=== PATIENT | male | born 1945 | race American Indian/Alaskan Native ===

== ENCOUNTER 2016-08-20 23:26 | Emergency (ER) | payer MEDICARE, MEDICAID ==
[2016-08-20 23:39] VITALS: BMI 33.8
[2016-08-20 23:42] VITALS: TEMP 98.5
--- NOTE | 2016-08-20 23:57 | ED PDOC ---
Arrival/HPI - General Chief Complaint: Vascular Access Device Problem Time Seen by Provider: 08/20/16 23:46 Historian: Patient - History of Present Illness Narrative History of Present Illness (Text): 08/20/16 23:54 Junior Hedrick is a 71 year old male, whose past medical history includes right chest [id number], CHF, cardiomyopathy, hypertension, CAD, diabetes, hypothyroidism, and anemia, who presents to the Emergency department complaining of obstructed chest port-a-cath. Patient states he has right port-a- cath Dobutaime drip which he believes may be clogged. Patient states his drip has been turning on and off since 14:30 and was advised by his nurse to come to the Emergency department. Patient denies any fever, chills, chest pain, shortness of breath, nausea, vomiting, diarrhea, urinary symptoms, back pain, neck pain, headache, dizziness, or any other complaints. PMD: Dr. Olayinka Nicole Shop Mechanic Helper: Dr. Nam Surgeon: Dr. Morris Time/Duration: Other (14:30) Symptom Onset: Gradual Symptom Course: Unchanged Activities at Onset: Rest, Light Context: Home Past Medical History - Provider Review Nursing Documentation Reviewed: Yes - Infectious Disease Hx of Infectious Diseases: None - Tetanus Immunization Tetanus Immunization: Unknown - Cardiac Hx Congestive Heart Failure: Yes Hx VT: Yes - Pulmonary Hx Respiratory Disorders: Yes Hx Pneumonia: Yes - Neurological Hx Neurological Disorder: No - HEENT Hx HEENT Disorder: Yes (WEARS RX GLASSES) - Renal Hx Renal Disorder: No - Endocrine/Metabolic Hx Endocrine Disorders: Yes Hx Diabetes Mellitus Type 2: Yes Hx Hypothyroidism: Yes - Hematological/Oncological Hx Blood Disorders: Yes Hx Anemia: Yes - Integumentary Hx Dermatological Disorder: No Other/Comment: ble dry skin - Musculoskeletal/Rheumatological Hx Falls: No - Gastrointestinal Hx Gastrointestinal Disorders: Yes Hx Gall Bladder Disease: Yes (CHOLECYSTECTOMY) - Genitourinary/Gynecological Hx Genitourinary Disorders: No - Psychiatric Hx Emotional Abuse: No Hx Physical Abuse: No Hx Substance Use: No - Surgical History Hx Cardiac Catheterization: Yes - Anesthesia Hx Anesthesia Reactions: No Hx Malignant Hyperthermia: No - Suicidal Assessment Feels Threatened In Home Enviroment: No Family/Social History - Physician Review Nursing Documentation Reviewed: Yes Family/Social History: No Known Family HX Smoking Status: Former Smoker Hx Alcohol Use: No Hx Substance Use: No Hx Substance Use Treatment: No Allergies/Home Meds Allergies/Adverse Reactions: Allergies NENITA Inhibitors Allergy (Severe, Verified 06/23/15 11:24) ANGIOEDEMA levothyroxine sodium Allergy (Severe, Verified 06/23/15 11:24) NAUSEA/ SWEATS lisinopril Allergy (Severe, Verified 06/23/15 11:24) ANGIOEDEMA all pril Allergy (Severe, Uncoded 06/23/15 11:24) ANGIOEDEMA eggs Allergy (Intermediate, Uncoded 06/23/15 11:24) RASH Home Medications: Home Meds Medication Instructions Recorded Confirmed Aspirin [Aspirin EC] 81 mg PO DAILY 07/03/14 08/06/16 Ferrous Sulfate [Feosol] 325 mg PO DAILY 05/29/15 08/06/16 Metoprolol Tartrate [Lopressor] 50 mg PO BID 05/29/15 08/06/16 Multivitamin [Multivitamins] 1 each PO DAILY 05/29/15 08/06/16 DOBUTamine 500mg/250ml D5W 500 mg IV DAILY 06/22/15 08/06/16 [DOBUTamine/Dextrose 5% 500mg/250ml] Review of Systems - Physician Review All systems were reviewed & negative as marked: Yes - Review of Systems Constitutional: Normal. absent: Fevers Eyes: Normal ENT: Normal Respiratory: Normal. absent: SOB, Cough Cardiovascular: Normal. absent: Chest Pain Gastrointestinal: Normal. absent: Abdominal Pain, Diarrhea, Nausea, Vomiting Genitourinary Male: Normal. absent: Dysuria, Frequency, Hematuria, Urinary Output Changes Musculoskeletal: Normal. absent: Back Pain, Neck Pain Skin: Normal. absent: Rash Neurological: Normal. absent: Headache, Dizziness Endocrine: Normal Hemo/Lymphatic: Other (+clogged port) Psychiatric: Normal Physical Exam - Physical Exam Narrative Physical Exam (Text): 08/20/16 23:56 Vital Signs Reviewed: Yes Vital Signs Temp Pulse Resp BP Pulse Ox 08/21/16 02:37 85 16 152/79 H 98 08/20/16 23:42 98.5 F 81 18 153/76 H 99 Temperature: Afebrile Blood Pressure: Normal Pulse: Regular Respiratory Rate: Normal Appearance: Positive for: Well-Appearing, Non-Toxic, Comfortable Pain Distress: None Mental Status: Positive for: Alert and Oriented X 3 - Systems Exam Head: Present: Atraumatic, Normocephalic Pupils: Present: PERRL Extroacular Muscles: Present: EOMI Conjunctiva: Present: Normal Mouth: Present: Moist Mucous Membranes Neck: Present: Normal Range of Motion Respiratory/Chest: Present: Clear to Auscultation, Good Air Exchange, Other ( Right chest port). No: Respiratory Distress, Accessory Muscle Use Cardiovascular: Present: Regular Rate and Rhythm, Normal S1, S2. No: Murmurs Abdomen: Present: Normal Bowel Sounds. No: Tenderness, Distention, Peritoneal Signs Back: Present: Normal Inspection Upper Extremity: Present: Normal Inspection. No: Cyanosis, Edema Lower Extremity: Present: Normal Inspection. No: Edema Neurological: Present: GCS=15, CN II-XII Intact, Speech Normal Skin: Present: Warm, Dry, Normal Color. No: Rashes Psychiatric: Present: Alert, Oriented x 3, Normal Insight, Normal Concentration Medical Decision Making ED Course and Treatment: 08/20/16 23:55 Impression: 71 year old male complaining of a clogged [id number]. Plan: -- Cathflo -- Reassess and disposition Prior Visits: Notes and results from previous visits were reviewed. Progress Notes: 08/21/16 02:27 [id number] flushed with good blood return as per RN. On re-evaluation, the patient feels better and is in no acute distress. I have discussed the results and plan with the patient, who expresses understanding. Patient in agreement with plan to discharged home. Patient is stable for discharge. Patient was instructed to follow up with physician/clinic in 1-2 days or return if symptoms worsen or new concerning symptoms arise. Re-evaluation Time: 02:27 Reassessment Condition: Re-examined, Improved - Medication Orders Current Medication Orders: Discontinued Medications Alteplase, Recombinant (Cathflo 2 Mg Inj) 2 mg IV ONCE ONE Stop: 08/21/16 00:13 Last Admin: 08/21/16 00:37 Dose: 2 mg Comments: med administered into port-a-cath. blood return reassessment due after 1 hour - Scribe Statement The provider has reviewed the documentation as recorded by the Scribe Daniella Carvajal All medical record entries made by the Scribe were at my direction and personally dictated by me. I have reviewed the chart and agree that the record accurately reflects my personal performance of the history, physical exam, medical decision making, and the department course for this patient. I have also personally directed, reviewed, and agree with the discharge instructions and disposition. Disposition/Present on Arrival - Present on Arrival Any Indicators Present on Arrival: No History of DVT/PE: No History of Uncontrolled Diabetes: No Urinary Catheter: No History of Decub. Ulcer: No History Surgical Site Infection Following: None - Disposition Have Diagnosis and Disposition been Completed?: Yes Diagnosis: Portacath in place Disposition: HOME/ ROUTINE Disposition Time: 02:27 Condition: GOOD Referrals: Jai Nicole DO [Primary Care Provider] - Follow up with primary
[2016-08-21 02:37] VITALS: BP 152/79; PULSE 85; RESP 16; O2SAT 98
== END 2016-08-21 02:36 | disposition home or self-care (01) ==
LOC: ED 23:26
DX: Z45.2 Encounter for adjustment and management of vascular access device (principal)
CPT/HCPCS: 99283; J2997

== ENCOUNTER 2018-04-16 12:11 | Emergency (ER) | payer MEDICARE, MEDICAID ==
[2018-04-16 12:15] VITALS: BMI 33.8
[2018-04-16 12:17] VITALS: BP 156/84; PULSE 74; RESP 18; TEMP 97.5; O2SAT 99
--- NOTE | 2018-04-16 12:36 | ED PDOC ---
Arrival/HPI - General Chief Complaint: Back Pain Time Seen by Provider: 04/16/18 12:13 Historian: Patient - History of Present Illness Narrative History of Present Illness (Text): 04/16/18 12:33 A 72 year old male, whose past medical history includes right chest bjgg-[id number], CHF, cardiomyopathy, hypertension, CAD, diabetes, hypothyroidism, and anemia, presents to the emergency department with a complaint of 4 day duration neck pain. The patient reports that the neck pain started "randomly and 2 days ago it worsened and began radiating up his neck to the back of his head. He states that he "believes he slept wrong and only needs a muscle relaxant". The patient denies fevers, chills, headache, dizziness, chest pain, shortness of breath, dyspnea on exertion, cough, abdominal pain, nausea, vomiting, diarrhea, back pain, urinary/bowel changes, or any other complaint. no trauma no larkin. [facility]. PMD: Dr. Nicole Flume Ride Operator: Dr. Nam Surgeon: Dr. Morris 04/16/18 22:14 Time/Duration: Other (4 Days) Symptom Onset: Sudden Symptom Course: Unchanged Activities at Onset: Rest, Light Context: Home Past Medical History - Provider Review Nursing Documentation Reviewed: Yes - Infectious Disease Hx of Infectious Diseases: None - Tetanus Immunization Tetanus Immunization: Unknown - Cardiac Hx Congestive Heart Failure: Yes Hx [place]: Yes - Pulmonary Hx Respiratory Disorders: Yes Hx Pneumonia: Yes - Neurological Hx Neurological Disorder: No - HEENT Hx HEENT Disorder: Yes (WEARS RX GLASSES) - Renal Hx Renal Disorder: No - Endocrine/Metabolic Hx Endocrine Disorders: Yes Hx Diabetes Mellitus Type 2: Yes Hx Hypothyroidism: Yes - Hematological/Oncological Hx Blood Disorders: Yes Hx Anemia: Yes - Integumentary Hx Dermatological Disorder: No Other/Comment: ble dry skin - Musculoskeletal/Rheumatological Hx Falls: No - Gastrointestinal Hx Gastrointestinal Disorders: Yes Hx Gall Bladder Disease: Yes (CHOLECYSTECTOMY) - Genitourinary/Gynecological Hx Genitourinary Disorders: No - Psychiatric Hx Emotional Abuse: No Hx Physical Abuse: No Hx Substance Use: No - Surgical History Hx Cardiac Catheterization: Yes - Anesthesia Hx Anesthesia Reactions: No Hx Malignant Hyperthermia: No - Suicidal Assessment Feels Threatened In Home Enviroment: No Family/Social History - Physician Review Nursing Documentation Reviewed: Yes Family/Social History: No Known Family HX Smoking Status: Light Smoker < 10 Cigarettes Daily Hx Alcohol Use: No Hx Substance Use: No Hx Substance Use Treatment: No Allergies/Home Meds Allergies/Adverse Reactions: Allergies NENITA Inhibitors Allergy (Severe, Verified 06/23/15 11:24) ANGIOEDEMA levothyroxine sodium Allergy (Severe, Verified 06/23/15 11:24) NAUSEA/ SWEATS lisinopril Allergy (Severe, Verified 06/23/15 11:24) ANGIOEDEMA all pril Allergy (Severe, Uncoded 06/23/15 11:24) ANGIOEDEMA eggs Allergy (Intermediate, Uncoded 06/23/15 11:24) RASH Home Medications: Home Meds Medication Instructions Recorded Confirmed RX: Aspirin [Aspirin EC] 81 mg PO DAILY 07/03/14 04/16/18 Ferrous Sulfate [Feosol] 325 mg PO DAILY 05/29/15 04/16/18 Metoprolol Tartrate [Lopressor] 50 mg PO BID 05/29/15 04/16/18 RX: metFORMIN [glucOPHAGE] 500 mg PO BID 12/26/16 04/16/18 Review of Systems - Physician Review All systems were reviewed & negative as marked: Yes - Review of Systems Constitutional: absent: Fevers Respiratory: absent: SOB, Cough Cardiovascular: absent: Chest Pain, RUIZ Gastrointestinal: absent: Abdominal Pain, Stool Changes, Diarrhea, Nausea, Vomiting Genitourinary Male: absent: Urinary Output Changes Musculoskeletal: Neck Pain. absent: Back Pain Neurological: absent: Headache, Dizziness Physical Exam Vital Signs Reviewed: Yes Vital Signs Temp Pulse Resp BP Pulse Ox 04/16/18 12:17 97.5 F L 74 18 156/84 H 99 Temperature: Hypothermic Blood Pressure: Hypertensive Pulse: Regular Respiratory Rate: Normal Appearance: Positive for: Well-Appearing, Non-Toxic, Comfortable Pain Distress: None Mental Status: Positive for: Alert and Oriented X 3 - Systems Exam Head: Present: Atraumatic, Normocephalic Pupils: Present: PERRL Extroacular Muscles: Present: EOMI Conjunctiva: Present: Normal Mouth: Present: Moist Mucous Membranes Neck: Present: Other (Left sided paracervical tenderness) Respiratory/Chest: Present: Clear to Auscultation, Good Air Exchange. No: Respiratory Distress, Accessory Muscle Use Cardiovascular: Present: Regular Rate and Rhythm, Normal S1, S2. No: Murmurs Abdomen: No: Tenderness, Distention, Peritoneal Signs Back: Present: Normal Inspection Upper Extremity: Present: Normal Inspection. No: Cyanosis, Edema Lower Extremity: Present: Normal Inspection. No: Edema Neurological: Present: GCS=15, CN II-XII Intact, Speech Normal Skin: Present: Warm, Dry, Normal Color. No: Rashes Psychiatric: Present: Alert, Oriented x 3, Normal Insight, Normal Concentration Medical Decision Making ED Course and Treatment: 04/16/18 12:37 Impression: A 72 year old male presents to the emergency department with 4 day duration neck pain radiating to his head. no lesions/masses palpated on exam. pt well appearing neuro intact no fever no meningmus. exam consistent with toritcollis. no indication for emergent imaging no trauma. adivs eoutpt fu. no cervial manipulation. Plan: -- Flexeril and Toradol -- Reassess and disposition Progress Notes: 04/16/18 12:38 Patient is in no acute distress. I have discussed the results and plan with the patient, who expresses understanding. Patient in agreement with plan to be discharged home. Patient is stable for discharge. Patient was instructed to follow up with physician or return if symptoms worsen or new concerning symptoms arise. 04/16/18 22:13 04/16/18 22:15 - Medication Orders Current Medication Orders: Cyclobenzaprine HCl (Flexeril) 10 mg PO STAT STA Stop: 04/16/18 12:32 Ketorolac Tromethamine (Toradol) 30 mg IM STAT STA Stop: 04/16/18 12:32 - Scribe Statement The provider has reviewed the documentation as recorded by the Iván Raymundo Provider Scribe Attestation: All medical record entries made by the Scribe were at my direction and personally dictated by me. I have reviewed the chart and agree that the record accurately reflects my personal performance of the history, physical exam, [facility] decision making, and the department course for this patient. I have also personally directed, reviewed, and agree with the discharge instructions and disposition. Disposition/Present on Arrival - Present on Arrival Any Indicators Present on Arrival: No History of DVT/PE: No History of Uncontrolled Diabetes: No Urinary Catheter: No History of Decub. Ulcer: No History Surgical Site Infection Following: None - Disposition Have Diagnosis and Disposition been Completed?: Yes Diagnosis: Neck pain, Torticollis Disposition: HOME/ ROUTINE Disposition Time: 12:00 Condition: STABLE Discharge Instructions (ExitCare): Neck Pain Additional Instructions: follow up with your doctor/clinic. return to er with worsening symptoms or concerns. Prescriptions: Cyclobenzaprine [Cyclobenzaprine HCl] 10 mg PO DAILY PRN #10 tab PRN Reason: Muscle Spasm RX: Naproxen 500 mg PO BID PRN #14 tablet PRN Reason: Pain, Mild (1-3) Referrals: Sergo Galo MD [Staff Provider] - Follow up with primary Forms: [employer] (Ukrainian)
== END 2018-04-16 13:09 | disposition home or self-care (01) ==
LOC: ED 12:11
DX: M43.6 Torticollis (principal); M54.2 Cervicalgia; E03.9 Hypothyroidism, unspecified; I25.10 Atherosclerotic heart disease of native coronary artery without angina pectoris; E11.9 Type 2 diabetes mellitus without complications; I42.9 Cardiomyopathy, unspecified; I10 Essential (primary) hypertension; I50.9 Heart failure, unspecified; F17.210 Nicotine dependence, cigarettes, uncomplicated
CPT/HCPCS: 96372; 99282; J1885

== ENCOUNTER 2018-05-27 10:39 | Outpatient (CLI) | payer MEDICARE, MEDICAID | END 2018-05-27 10:40 | disposition home or self-care (01) | LOC: LAB 10:39 ==

== ENCOUNTER 2018-06-21 10:52 | Outpatient (CLI) | payer MEDICARE, MEDICAID | END 2018-06-21 10:53 | disposition home or self-care (01) | LOC: LAB 10:52 ==

== ENCOUNTER 2018-07-26 07:31 | Outpatient (CLI) | payer MEDICARE, MEDICAID | END 2018-07-26 07:32 | disposition home or self-care (01) | LOC: LAB 07:31 ==

== ENCOUNTER 2018-07-28 10:36 | Observation (INO) | payer MEDICARE, MEDICAID ==
[2018-07-28 10:40] VITALS: BMI 31.9
[2018-07-28 11:22] LABS: BASO # 0.05 K/mm3 (0.0-2.0); BASO % 0.7 % (0.0-3.0); EOS # 0.1 (0.0-0.7); EOS % 0.9 % (1.5-5.0); HEMOGLOBIN 9.8 g/dL (14.0-18.0); LYMPH # 0.8 (1.2-3.4); LYMPH % 11.4 % (22.0-35.0); MEAN CELL VOLUME 78.3 fl (80.0-105.0); MEAN CORPUSCULAR HEMOGLOBIN 24.7 pg (25.0-35.0); MEAN CORPUSCULAR HGB CONC 31.6 g/dl (31.0-37.0); MEAN PLATELET VOLUME 10.4 fl (7.0-11.0); MONO # 1.1 (0.1-0.6); MONO % 16.4 % (1.0-6.0); RBC 3.96 10^6/uL (3.5-6.1); RED CELL DISTRIBUTION WIDTH 17.1 % (11.5-14.5); WHITE BLOOD COUNT 6.8 10^3/uL (4.5-11.0)
[2018-07-28 11:27] LABS: ALB/GLOB RATIO 1.1 (1.1-1.8); ALBUMIN 4.1 g/dL (3.0-4.8); CALCIUM 9.4 mg/dL (8.4-10.5)
--- NOTE | 2018-07-28 11:28 | ED PDOC ---
Arrival/HPI - General Historian: Patient - History of Present Illness Narrative History of Present Illness (Text): 07/28/18 11:24 CC: SOB HPI: Patient is a 73 yo male w/ PMH of Cardiomyopathy, CHF, HTN, CAD, athritis, DM2, Hypothyroidism, herniated disks, and a port-a-cath placed. Patient states he has been having sob ongoing for past 2-3 weeks. Patient states the sob occurs during minimal exertion including walking a short distance. Admits to dry cough. Patient states he followed up with his PMD, Dr. Nicole, who has setup an outpatient stress test for this upcoming thursday. Patient denies angina. Patient admits to a smoking history of greater than 30 years. Was recently taken off dobutamine drip and was placed on entresto. Time/Duration: > week Symptom Course: Unchanged Activities at Onset: Light Context: Walking, Exertion <Kiet Armenta - Last Filed: 07/28/18 12:49> <Kosta Jeff DO - Last Filed: 07/28/18 18:22> - General Chief Complaint: Shortness Of Breath Time Seen by Provider: 07/28/18 10:42 Past Medical History - Provider Review Nursing Documentation Reviewed: Yes - Infectious Disease Hx of Infectious Diseases: None - Tetanus Immunization Tetanus Immunization: Unknown - Cardiac Hx Congestive Heart Failure: Yes Hx OR: Yes - Pulmonary Hx Respiratory Disorders: Yes Hx Pneumonia: Yes - Neurological Hx Neurological Disorder: No - HEENT Hx HEENT Disorder: Yes (WEARS RX GLASSES) - Renal Hx Renal Disorder: No - Endocrine/Metabolic Hx Endocrine Disorders: Yes Hx Diabetes Mellitus Type 2: Yes Hx Hypothyroidism: Yes - Hematological/Oncological Hx Blood Disorders: Yes Hx Anemia: Yes - Integumentary Hx Dermatological Disorder: No Other/Comment: ble dry skin - Musculoskeletal/Rheumatological Hx Falls: No - Gastrointestinal Hx Gastrointestinal Disorders: Yes Hx Gall Bladder Disease: Yes (CHOLECYSTECTOMY) - Genitourinary/Gynecological Hx Genitourinary Disorders: No - Psychiatric Hx Emotional Abuse: No Hx Physical Abuse: No Hx Substance Use: No - Surgical History Hx Cardiac Catheterization: Yes - Anesthesia Hx Anesthesia Reactions: No Hx Malignant Hyperthermia: No - Suicidal Assessment Feels Threatened In Home Enviroment: No <Kiet Armenta - Last Filed: 07/28/18 12:49> Family/Social History Family/Social History: No Known Family HX Smoking Status: Light Smoker < 10 Cigarettes Daily Hx Alcohol Use: No Hx Substance Use: No Hx Substance Use Treatment: No <Kiet Armenta - Last Filed: 07/28/18 12:49> Allergies/Home Meds <Kiet Armenta - Last Filed: 07/28/18 12:49> <Kosta Jeff DO - Last Filed: 07/28/18 18:22> Allergies/Adverse Reactions: Allergies eggs Allergy (Intermediate, Uncoded 07/28/18 12:47) RASH Home Medications: Home Meds Medication Instructions Recorded Confirmed Aspirin [Aspirin EC] 81 mg PO DAILY 07/03/14 07/28/18 Metoprolol Tartrate [Lopressor] 50 mg PO BID 05/29/15 07/28/18 metFORMIN [glucOPHAGE] 500 mg PO BID 12/26/16 07/28/18 Atorvastatin [Lipitor] 10 mg PO DIN 07/28/18 07/28/18 Famotidine [Pepcid] 20 mg PO DAILY 07/28/18 07/28/18 Ferrous Sulfate [Ferosul] 325 mg PO DAILY 07/28/18 07/28/18 Furosemide [Lasix] 40 mg PO DAILY 07/28/18 07/28/18 Ibuprofen [Advil] 200 mg PO BID 07/28/18 07/28/18 Levothyroxine [Levoxyl] 0.025 mg PO DAILY 07/28/18 07/28/18 Sacubitril/Valsartan [Entresto 49 1 tab PO DAILY 07/28/18 07/28/18 mg-51 mg] Review of Systems - Review of Systems Constitutional: Normal. absent: Fatigue, Weight Change, Fevers, Night Sweats Eyes: Normal. absent: Vision Changes, Photophobia ENT: Normal. absent: Hearing Changes, Tinnitus Respiratory: SOB, Cough. absent: Sputum, Wheezing Cardiovascular: RUIZ. absent: Chest Pain, Palpitations, Edema, Calf Pain, Orthopnea Gastrointestinal: Normal. absent: Abdominal Pain, Stool Changes, Constipation, Diarrhea, Nausea, Vomiting Genitourinary Male: Normal. absent: Dysuria, Frequency Musculoskeletal: Normal. absent: Arthralgias, Back Pain, Neck Pain Skin: Normal. absent: Rash Neurological: Normal. absent: Headache, Dizziness Endocrine: Normal. absent: Diaphoresis, Polyuria Psychiatric: Normal. absent: Anxiety, Depression <Kiet Armenta - Last Filed: 07/28/18 12:49> Physical Exam Vital Signs Reviewed: Yes Vital Signs Resp Pulse Ox 07/28/18 11:05 18 100 Temperature: Afebrile Blood Pressure: Normal Pulse: Regular Respiratory Rate: Normal Appearance: Positive for: Well-Appearing, Non-Toxic, Comfortable Pain Distress: None Mental Status: Positive for: Alert and Oriented X 3 - Systems Exam Head: Present: Atraumatic, Normocephalic. No: Tenderness, Contusion Pupils: Present: PERRL. No: Sluggish, Non-Reactive Extroacular Muscles: Present: EOMI. No: Gaze Palsy Conjunctiva: Present: Normal. No: Injected Ears: Present: Normal. No: NORMAL TM, Erythema Mouth: Present: Moist Mucous Membranes. No: Dry, Drooling, Trismus Pharnyx: Present: Normal. No: ERYTHEMA, EXUDATE, TONSILS ENLARGED Respiratory/Chest: Present: Clear to Auscultation, Good Air Exchange. No: Respiratory Distress, Accessory Muscle Use, Wheezes Cardiovascular: Present: Regular Rate and Rhythm, Normal S1, S2. No: Murmurs Abdomen: Present: Normal Bowel Sounds. No: Tenderness, Distention, Peritoneal Signs Upper Extremity: Present: Normal Inspection. No: Cyanosis, Edema Lower Extremity: Present: Normal Inspection. No: Edema, CALF TENDERNESS Neurological: Present: GCS=15, CN II-XII Intact, Speech Normal Skin: Present: Warm, Dry, Normal Color. No: Rashes Psychiatric: Present: Alert, Oriented x 3, Normal Insight, Normal Concentration <Kiet Armenta - Last Filed: 07/28/18 12:49> Vital Signs Pulse Resp BP Pulse Ox 07/28/18 12:31 146/92 H 07/28/18 12:28 84 22 146/92 H 97 07/28/18 11:05 18 100 <Kosta Jeff DO - Last Filed: 07/28/18 18:22> Medical Decision Making ED Course and Treatment: 07/28/18 11:31 Impression 73 yo male w/ PMHx CAD (stent placement in 09/30), HTN, DM II, HLD, TIA, COPD, Depression, Generalized Anxiety Disorder who presented to the emergency department for 2-3 weeks of ongoing sob. Plan -BNP -Cardiac Enzymes -Magnesium -CMP -CXray -EKG -Lasix Prior Visits All prior visits and lab work reviewed for this evaluation Progress Notes Pending results of studies to consider differential for RUIZ, (CHF vs Interstitial Lung Disease vs CAD) 07/28/18 12:24 Had discussion with PMD, Dr. Nicole, for possible admission for inpatient stress test done with Dr. Lis Nicole accepted patient to the his service Paged Dr. Hays awaiting call back. Patient amenable to staying after discussion with who was at bedside 07/28/18 12:27 Dr. Hays called back stating that he will likely do stress test in the morning 07/28/18 12:28 1x dose of Lasix was given to due to radiology studies suggestive of pulmonary venous congestion Re-evaluation Time: 12:25 Reassessment Condition: Re-examined, Unchanged - Lab Interpretations Lab Results: 07/28/18 11:00 07/28/18 11:00 Lab Results 07/28/18 11:00: Sodium 140, Potassium 3.7, Chloride 102, Carbon Dioxide 28, Anion Gap 14, BUN 18, Creatinine 1.6 H, Est GFR ( Amer) 52, Est GFR (Non- Af Amer) 43, Random Glucose 172 H, Calcium 9.4, Magnesium 1.5 L, Total Bilirubin 2.7 H, AST 198 H D, ALT 201 H, Alkaline Phosphatase 229 H D, Lactate Dehydrogenase 1428 H, Total Creatine Kinase 90, Troponin I 0.07 D, NT-Pro-B Natriuret Pep 20712 H, Total Protein 7.8, Albumin 4.1, Globulin 3.7, Albumin/Globulin Ratio 1.1 07/28/18 11:00: WBC 6.8, RBC 3.96, Hgb 9.8 L, Hct 31.0 L, MCV 78.3 L, MCH 24.7 L , MCHC 31.6, RDW 17.1 H, Plt Count 285, MPV 10.4, Neut % (Auto) 70.6 H, Lymph % (Auto) 11.4 L, Sullivan % (Auto) 16.4 H, Eos % (Auto) 0.9 L, Baso % (Auto) 0.7, Lymph # (Auto) 0.8 L, Sullivan # (Auto) 1.1 H, Eos # (Auto) 0.1, Baso # (Auto) 0.05, Absolute Neuts (auto) 4.77 I have reviewed the lab results: Yes Interpretation: Abnormal lab values - RAD Interpretation Narrative RAD Interpretations (Text): 07/28/18 12:27 Radiology Results Chest X-Ray 07/28/18 11:01 IMPRESSION: Mild cardiomegaly and mild vascular congestion Radiology Orders: 07/28/18 11:01 CHEST PORTABLE [RAD] Stat - EKG Interpretation Interpreted by ED Physician: Yes Type: 12 lead EKG Comparison: Similar to previous EKG <Italo Armentachristo - Last Filed: 07/28/18 12:49> ED Course and Treatment: 07/28/18 13:38 Patient Seen with Resident: In agreement with resident note which contains more details about the patient. Patient seen and evaluated with resident. Came up with plan and treatment together. 07/28/18 17:32 - Lab Interpretations Lab Results: Troponin I 0.07 ng/mL D 07/28/18 11:00 NT-Pro-B Natriuret Pep 92901 pg/mL (0-450) H 07/28/18 11:00 Total Bilirubin 2.7 mg/dL (0.2-1.3) H 07/28/18 11:00 AST 198 U/L (17-59) H D 07/28/18 11:00 ALT 201 U/L (7-56) H 07/28/18 11:00 Alkaline Phosphatase 229 U/L (38-126) H D 07/28/18 11:00 Total Protein 7.8 g/dL (5.8-8.3) 07/28/18 11:00 Albumin 4.1 g/dL (3.0-4.8) 07/28/18 11:00 Globulin 3.7 gm/dL 07/28/18 11:00 Albumin/Globulin Ratio 1.1 (1.1-1.8) 07/28/18 11:00 - RAD Interpretation Radiology Orders: 07/28/18 11:01 CHEST PORTABLE [RAD] Stat - Medication Orders Current Medication Orders: Discontinued Medications Furosemide (Lasix) 40 mg IVP STAT STA Stop: 07/28/18 12:18 Last Admin: 07/28/18 12:31 Dose: 40 mg MAR Blood Pressure Document 07/28/18 12:31 EAR (Rec: 07/28/18 12:31 EAR [facility] [id number]) Blood Pressure Blood Pressure (100/60-150/90) 146/92 IVP Administration Document 07/28/18 12:31 EAR (Rec: 07/28/18 12:31 EAR [facility] [place]-ER-[id number]) Charges for Administration # of IVP Administrations 1 <Kosta Jeff DO - Last Filed: 07/28/18 18:22> - PA / MOVE COORDINATOR / Resident Statement MICHOACANO has reviewed & agrees with the documentation as recorded. MICHOACANO has examined the patient and agrees with the treatment plan. <Kosta Jeff DO - Last Filed: 07/28/18 18:22> Disposition/Present on Arrival - Present on Arrival Any Indicators Present on Arrival: No History of DVT/PE: No History of Uncontrolled Diabetes: No Urinary Catheter: No History of Decub. Ulcer: No History Surgical Site Infection Following: None - Disposition Have Diagnosis and Disposition been Completed?: Yes Disposition Time: 12:50 Patient Plan: Telemetry <Kiet Armenta - Last Filed: 07/28/18 12:49> - Disposition Disposition Time: 11:45 <Kosta Jeff DO - Last Filed: 07/28/18 18:22> - Disposition Diagnosis: Dyspnea, CHF (congestive heart failure), CAD (coronary artery disease) Disposition: HOSPITALIZED Patient Problems: Current Active Problems Problem Status Onset CHF (congestive heart failure) Acute Dyspnea Acute CAD (coronary artery disease) Acute Condition: STABLE
[2018-07-28 11:39] LABS: TROPONIN I 0.07 ng/mL
--- NOTE | 2018-07-28 12:22 | RAD ---
Date of service: 07/28/2018 HISTORY: shortness of breath COMPARISON: 07/26/2018 TECHNIQUE: 1 view obtained. FINDINGS: LUNGS: No active pulmonary disease. PLEURA: No significant pleural effusion identified, no pneumothorax apparent. CARDIOVASCULAR: No aortic atherosclerotic calcification present. Mild cardiomegaly mild vascular congestion OSSEOUS STRUCTURES: No significant abnormalities. VISUALIZED UPPER ABDOMEN: Normal. OTHER FINDINGS: None. IMPRESSION: Mild cardiomegaly and mild vascular congestion
[2018-07-28] MEDS: SACUBITRIL 49mg/VALSARTAN 51mg tab PO SCH (17:18)
[2018-07-28] MEDS ORDERED: Pneumococcal 23-Valent Vaccine IM ONE (18:29)
--- NOTE | 2018-07-28 18:34 | CARD ---
APPROVED REPORT Date of service: 07/28/2018 EKG Measurement Heart [id number] <Conclusion> Sinus rhythm with frequent and consecutive premature ventricular complexes and fusion complexes Possible Left atrial enlargement Left ventricular hypertrophy with repolarization abnormality Prolonged QT Abnormal ECG
[2018-07-28] MEDS ORDERED: Magnesium Sulfate 2 gm/50 ml 2 GM/50 ML BAG IVPB ONE (22:24)
--- NOTE | 2018-07-29 03:36 | HP ---
DATE OF EXAM: 07/28/2018 HISTORY OF PRESENT ILLNESS: I was called down to the emergency room to admit Junior Hedrick. I have known him for a very long time. He comes in having shortness of breath over the past 2 to 3 weeks. He was seen in the office, we changed his medications around, and now with minimal exertion or walking a short distance he has been getting short of breath almost like he is getting into congestive heart failure. PAST MEDICAL HISTORY: He is a 73-year-old man with a past medical history of cardiomyopathy, CHF, hypertension, CAD, arthritis, diabetes, hypothyroidism, and a herniated disc. Port-A-Cath placed. He was recently taken off the dobutamine drip and was placed on Entresto. He is short of breath. He has congestive heart failure, he had a myocardial infarction, he has had pneumonias. He wears glasses. He has type 2 diabetes, hypothyroidism, and anemia. He has dry skin. He had a cholecystectomy and cardiac catheterizations. SOCIAL HISTORY: He still smokes cigarettes. No alcohol. No drugs. FAMILY HISTORY: No known family history. ALLERGIES: HE HAS ALLERGIES TO EGGS. MEDICATIONS: He is on aspirin, metoprolol, metformin, atorvastatin, Pepcid, Feosol, Lasix, Advil, Levoxyl, and Entresto. REVIEW OF SYSTEMS: Not really fatigued, weak. No weight change. No fevers or night sweats. No vision changes. No photophobia. No ringing in the ears. No hearing issues. He is short of breath. He has a cough. No sputum or wheezing. A little bit of dyspnea on exertion. No chest pain or palpitations. No edema. No calf pain. No nausea, vomiting, constipation, or diarrhea. He has no problems urinating. No arthralgias, neck pain, or back pain. No rashes. No headache, dizziness, diaphoresis. No polyuria. No anxiety. No depression. PHYSICAL EXAMINATION: GENERAL: He is comfortable sitting down, looking at me, well appearing, nontoxic, comfortable at rest. VITAL SIGNS: He has an 18 respiratory rate, 94 pulse, 147/82 blood pressure, 99% O2 sat. HEENT: Head is atraumatic and normocephalic. Extraocular muscles are intact. Pupils are reactive to light and accommodation. Throat is moist. NECK: Supple. No JVD. No meningeal signs. No cervical lymphadenopathy. Throat is clear. No erythema. HEART: Regular rate. Normal S1 and S2. LUNGS: Decreased breath sounds, but clear to auscultation. No wheezes, no rhonchi, no rales. ABDOMEN: Soft and nontender. Positive bowel sounds. No guarding, no rebound, no CVA tenderness. EXTREMITIES: No edema. NEUROLOGIC: GCS is 15. Alert and oriented x3. Cranial nerves II through XII grossly intact. Speech is normal. SKIN: Warm and dry. No apparent rashes or ulcers. REVIEW OF ORDERS: The validation analyst was called and they are going to do a stress test tomorrow morning. Given IV Lasix for pulmonary venous congestion on the chest x-ray. LABORATORY DATA: He had a 6.8 white count, 9.8 hemoglobin, 31 hematocrit, with a 285 platelets. He has a 140 sodium, potassium is 3.7, BUN 18, creatinine 1.6. GFR is 43. The last blood sugar was 134. Calcium is 9.4, magnesium 1.5, total bili is 2.7, AST is 198, ALT is 201, alk phos is 329. Lactate dehydrogenase is 1428. Troponin I is 0.07. BNP is high at 20,900. Total protein is 7.8. ASSESSMENT AND PLAN: He is going to consult Cardiology and Gastroenterology. He is here for a shortness of breath, dyspnea on exertion, congestive heart failure picture with elevated liver enzymes. He is on observation. We will give him Lasix 40 mg IV daily plus his medications. He will have oxygen. Check his labs tomorrow. I am hoping that he will improve. Junior Hedrick has a congestive heart failure picture, shortness of breath, and elevated liver enzymes. Jai Nicole DO
[2018-07-29 07:01] LABS: MEAN CELL VOLUME 78.3 fl (80.0-105.0); MEAN CORPUSCULAR HGB CONC 31.9 g/dl (31.0-37.0); MEAN PLATELET VOLUME 10.6 fl (7.0-11.0); RED CELL DISTRIBUTION WIDTH 17.4 % (11.5-14.5); WHITE BLOOD COUNT 7.4 10^3/uL (4.5-11.0)
[2018-07-29 07:21] LABS: ALB/GLOB RATIO 1.1 (1.1-1.8); CALCIUM 9.4 mg/dL (8.4-10.5)
[2018-07-29 07:45] VITALS: RESP 20; TEMP 98.2; O2SAT 97
--- NOTE | 2018-07-29 09:05 | CP.PCM.CON ---
<Ethan Alberto - Last Filed: 07/29/18 14:19> History of Present Illness - History of Present Illness History of Present Illness: PGY6 GI Fellow Consult Note Patient is a 73yo AA male with PMHx significant for systolic CHF (EF~25% in 2016) previously requiring at home Dobutamine infusions, nonocclusive CAD, HTN, DM2, hypothyroidism, dyslipidemia and arthritis who presented to the ED with com plaint of shortness of breath. The patient states that for the last 2-3 weeks he has been experiencing progressively worsening dyspnea on exertion. Symptoms became so severe that he found himself SOB at rest, prompting him to come to the ED. Our service has been consulted for evaluation of elevated LFTs, noted on admission blood work. LFT elevation was noted on a previous admission for congestive heart failure. The patient has a known history of heart disease with systolic CHF and CAD as mentioned above. He was previously on at home infusions of Dobutamine via right chest wall Port-a-cath but has been taken off this somewhat recently in favor of initiating oral therapy with Entresto. He denies any other new medications. Denies any abdominal pain, pruritus, confusion, jaundice, weight loss, change in bowel habits, increasing abdominal girth. 12 system ROS performed and negative except where stated PMHx: See HPI PSHx: Cholecystectomy, Port-a-cath placement, B/L knee repair FHx: Mother - unknown malignancy; Older brother - unknown malignancy; Younger brother - CHF Social: Former tobacco use; Denies EtOH or illicit drug use Endo: EGD/Colonoscopy 6-7 years prior to admission - recalls having polyps removed - no report for review at this time Past Patient History - Infectious Disease Hx of Infectious Diseases: None - Tetanus Immunizations Tetanus Immunization: Unknown - Past Social History Smoking Status: Current Some Days Smoker - CARDIAC Hx Cardiac Disorders: Yes (CARDIOMYOPATHY-WAS ON DOBUTAMINE DRIP.D/C) Hx Circulatory Problems: Yes Hx Congestive Heart Failure: Yes Hx Hypercholesterolemia: Yes Hx Hypertension: Yes Hx Peripheral Edema: Yes - PULMONARY Hx Respiratory Disorders: Yes (SMOKED 3 PPD THEN CUT IT DOWN TO PPD LASTED X 2 WEEKS THEN 2 CIG A DAY NOW.) Hx Pneumonia: Yes - NEUROLOGICAL Hx Neurological Disorder: Yes - HEENT Hx HEENT Problems: Yes (WEARS RX GLASSES) - RENAL Hx Chronic Kidney Disease: No - ENDOCRINE/METABOLIC Hx Endocrine Disorders: Yes Hx Diabetes Mellitus Type 2: Yes Hx Hypothyroidism: Yes - HEMATOLOGICAL/ONCOLOGICAL Hx Blood Disorders: Yes Hx Anemia: Yes - INTEGUMENTARY Hx Dermatological Problems: Yes Other/Comment: ble dry skin. 07-28-18 BILATERAL LE EDEMA +2 PITTING.BILATERAL SCARRING TO H/O OF BILATEAL LE WITH RECONCSTRUCTIVE SX WITH PLATE AND RODS 1990. RIGHT LOWER ABDOMIEN SCARRING -CHOLECYSTECTOMY. RIGHT CHEST WALL PORT 2018 - MUSCULOSKELETAL/RHEUMATOLOGICAL Hx Musculoskeletal Disorders: Yes (TORTICOLLIS) Hx Arthritis: Yes Hx Falls: No Hx Herniated Disk: Yes Hx Unsteady Gait: Yes (WALKER CANE) - GASTROINTESTINAL Hx Gastrointestinal Disorders: Yes Hx Gall Bladder Disease: Yes (CHOLECYSTECTOMY) - GENITOURINARY/GYNECOLOGICAL Hx Genitourinary Disorders: No - PSYCHIATRIC Hx Psychophysiologic Disorder: Yes Hx Anxiety: Yes Hx Depression: Yes Hx Emotional Abuse: No Hx Physical Abuse: No Hx Substance Use: No - SURGICAL HISTORY Hx Surgeries: Yes Hx Cardiac Catheterization: Yes Hx Cholecystectomy: Yes Hx Orthopedic Surgery: Yes (BLLE RECONTRUCTION WITH PLATES AND RODS IN 1990) Other/Comment: pt stated "I was bow legged" had reconstruction with plates and rods 1990 to both knees, rcw pac 2 weeks ago - ANESTHESIA Hx Anesthesia Reactions: No Hx Malignant Hyperthermia: No Meds Allergies/Adverse Reactions: Allergies Allergy/AdvReac Type Severity Reaction Status Date / Time eggs Allergy Intermediate RASH Uncoded 07/28/18 12:47 - Medications Medications: Current Medications Aspirin (Ecotrin) 81 mg PO DAILY [facility] Atorvastatin Calcium (Lipitor) 10 mg PO DIN [facility] Last Admin: 07/28/18 17:18 Dose: 10 mg Famotidine (Pepcid) 20 mg PO BID [facility] Last Admin: 07/28/18 17:20 Dose: 20 mg Ferrous Gluconate (Fergon) 324 mg PO DAILY [facility] Furosemide (Lasix) 40 mg IVP DAILY [facility] Levothyroxine Sodium (Synthroid) 25 mcg PO DAILY [facility] Metformin HCl (Glucophage) 500 mg PO DAILY [facility] Metoprolol Tartrate (Lopressor) 50 mg PO BID [facility] Last Admin: 07/28/18 17:18 Dose: 50 mg Sacubitril/Valsartan (Entresto 49 Mg-51 Mg Tablet) 1 each PO BID [facility] Last Admin: 07/28/18 17:18 Dose: 1 each Physical Exam - Constitutional Appears: Non-toxic, No Acute Distress - Eye Exam Eye Exam: EOMI, PERRL. absent: Scleral icterus - ENT Exam ENT Exam: Mucous Membranes Moist - Respiratory Exam Respiratory Exam: Decreased Breath Sounds, Rales. absent: Clear to Auscultation Bilateral, Rhonchi, Wheezes - Cardiovascular Exam Cardiovascular Exam: RRR, +S1, +S2 - GI/Abdominal Exam GI & Abdominal Exam: Normal Bowel Sounds, Soft. absent: Distended, Firm, Guarding, Hernia, Organomegaly, Rigid, Tenderness - Extremities Exam Additional comments: B/L LE 1+ edema - Neurological Exam Neurological exam: Alert, Oriented x3 - Psychiatric Exam Psychiatric exam: Normal Affect, Normal Mood - Skin Skin Exam: Dry, Warm Results - Vital Signs Recent Vital Signs: Last Vital Signs Temp 98.2 F 07/29/18 07:44 Pulse 92 H 07/29/18 07:44 Resp 20 07/29/18 07:44 BP 168/92 H 07/29/18 07:44 Pulse Ox 97 07/29/18 07:44 - Labs Result Diagrams: 07/29/18 06:40 07/29/18 06:40 Labs: Laboratory Results - last 24 hr 07/28/18 07/28/18 07/28/18 11:00 11:00 15:41 WBC 6.8 RBC 3.96 Hgb 9.8 L Hct 31.0 L MCV 78.3 L MCH 24.7 L MCHC 31.6 RDW 17.1 H Plt Count 285 MPV 10.4 Neut % (Auto) 70.6 H Lymph % (Auto) 11.4 L [place] % (Auto) 16.4 H Eos % (Auto) 0.9 L Baso % (Auto) 0.7 Lymph # (Auto) 0.8 L [place] # (Auto) 1.1 H Eos # (Auto) 0.1 Baso # (Auto) 0.05 Absolute Neuts (auto) 4.77 Sodium 140 Potassium 3.7 Chloride 102 Carbon Dioxide 28 Anion Gap 14 BUN 18 Creatinine 1.6 H Est GFR ( Amer) 52 Est GFR (Non-Af Amer) 43 POC Glucose (mg/dL) 134 H Random Glucose 172 H Calcium 9.4 Magnesium 1.5 L Total Bilirubin 2.7 H Direct Bilirubin AST 198 H D ALT 201 H Alkaline Phosphatase 229 H D Lactate Dehydrogenase 1428 H Total Creatine Kinase 90 Troponin I 0.07 D NT-Pro-B Natriuret Pep 99656 H Total Protein 7.8 Albumin 4.1 Globulin 3.7 Albumin/Globulin Ratio 1.1 07/28/18 07/28/18 07/29/18 21:07 22:33 06:40 WBC 7.4 RBC 4.00 Hgb 10.0 L Hct 31.3 L MCV 78.3 L MCH 25.0 MCHC 31.9 RDW 17.4 H Plt Count 283 MPV 10.6 Neut % (Auto) Lymph % (Auto) [place] % (Auto) Eos % (Auto) Baso % (Auto) Lymph # (Auto) [place] # (Auto) Eos # (Auto) Baso # (Auto) Absolute Neuts (auto) Sodium Potassium Chloride Carbon Dioxide Anion Gap BUN Creatinine Est GFR ( Amer) Est GFR (Non-Af Amer) POC Glucose (mg/dL) 176 H Random Glucose Calcium Magnesium Total Bilirubin Direct Bilirubin AST ALT Alkaline Phosphatase Lactate Dehydrogenase Total Creatine Kinase Troponin I 0.08 NT-Pro-B Natriuret Pep Total Protein Albumin Globulin Albumin/Globulin Ratio 07/29/18 07/29/18 07/29/18 06:40 06:40 07:14 WBC RBC Hgb Hct MCV MCH MCHC RDW Plt Count MPV Neut % (Auto) Lymph % (Auto) [place] % (Auto) Eos % (Auto) Baso % (Auto) Lymph # (Auto) [place] # (Auto) Eos # (Auto) Baso # (Auto) Absolute Neuts (auto) Sodium 141 Potassium 3.6 Chloride 105 Carbon Dioxide 24 Anion Gap 15 BUN 20 Creatinine 1.8 H Est GFR ( Amer) 45 Est GFR (Non-Af Amer) 37 POC Glucose (mg/dL) 134 H Random Glucose 119 H Calcium 9.4 Magnesium Total Bilirubin 2.9 H Direct Bilirubin 0.7 H AST 245 H D ALT 278 H Alkaline Phosphatase 241 H Lactate Dehydrogenase Total Creatine Kinase Troponin I NT-Pro-B Natriuret Pep Total Protein 7.8 Albumin 4.0 Globulin 3.7 Albumin/Globulin Ratio 1.1 Assessment & Plan - Assessment and Plan (Free Text) Assessment: Patient is a 73yo AA male with PMHx significant for systolic CHF (EF~25% in 2016) previously requiring at home Dobutamine infusions, nonocclusive CAD, HTN, DM2, hypothyroidism, dyslipidemia and arthritis who presented to the ED with complaint of shortness of breath -Acute exacerbation of chronic systolic heart failure -Abnormal LFTs, suspect 2/2 above -CAD -HTN -DM -Dyslipidemia Plan: -LFTs elevated in mixed pattern similar to prior episodes which occurred at times of CHF exacerbation -Given known cardiac history, presume that LFT elevation is related to hepatic congestion -Abdominal U/S and duplex ordered -Check viral hepatitis panel and autoimmune markers (MARVIN, AMA, SMA) - patient currently refusing further lab work -Indirect hyperbilirubinemia noted, supportive of hepatic congestion -Hold statin therapy while LFTs elevated; can contribute to LFT abnormalities as DILI -Patient to have stress testing this morning -Cardiology following -Plan per findings -Per discussion with nursing, patient is asking to be discharged at this time - if patient does not warrant further optimization from primary or cardiology and is to be discharged, he would require ongoing testing as ordered (viral hepatitis and autoimmune markers) as well as repeat LFTs in no more than one week's time; patient will require cardiac and hepatology follow up and this was explained to him - Date & Time Date: 07/29/18 Time: 08:15 <Mazin Badillo - Last Filed: 07/29/18 14:41> Results - Vital Signs Recent Vital Signs: Last Vital Signs Temp 98.2 F 07/29/18 07:44 Pulse 79 07/29/18 13:12 Resp 20 07/29/18 07:44 BP 175/109 H 07/29/18 13:12 Pulse Ox 97 07/29/18 07:44 - Labs Result Diagrams: 07/29/18 06:40 07/29/18 06:40 Labs: Laboratory Results - last 24 hr 07/28/18 07/28/18 07/28/18 15:41 21:07 22:33 WBC RBC Hgb Hct MCV MCH MCHC RDW Plt Count MPV Sodium Potassium Chloride Carbon Dioxide Anion Gap BUN Creatinine Est GFR ( Amer) Est GFR (Non-Af Amer) POC Glucose (mg/dL) 134 H 176 H Random Glucose Calcium Total Bilirubin Direct Bilirubin AST ALT Alkaline Phosphatase Troponin I 0.08 Total Protein Albumin Globulin Albumin/Globulin Ratio 07/29/18 07/29/18 07/29/18 06:40 06:40 06:40 WBC 7.4 RBC 4.00 Hgb 10.0 L Hct 31.3 L MCV 78.3 L MCH 25.0 MCHC 31.9 RDW 17.4 H Plt Count 283 MPV 10.6 Sodium 141 Potassium 3.6 Chloride 105 Carbon Dioxide 24 Anion Gap 15 BUN 20 Creatinine 1.8 H Est GFR ( Amer) 45 Est GFR (Non-Af Amer) 37 POC Glucose (mg/dL) Random Glucose 119 H Calcium 9.4 Total Bilirubin 2.9 H Direct Bilirubin 0.7 H AST 245 H D ALT 278 H Alkaline Phosphatase 241 H Troponin I Total Protein 7.8 Albumin 4.0 Globulin 3.7 Albumin/Globulin Ratio 1.1 07/29/18 07:14 WBC RBC Hgb Hct MCV MCH MCHC RDW Plt Count MPV Sodium Potassium Chloride Carbon Dioxide Anion Gap BUN Creatinine Est GFR ( Amer) Est GFR (Non-Af Amer) POC Glucose (mg/dL) 134 H Random Glucose Calcium Total Bilirubin Direct Bilirubin AST ALT Alkaline Phosphatase Troponin I Total Protein Albumin Globulin Albumin/Globulin Ratio Attending/Attestation - Attestation I have fully participated in the care of the patient.: Yes I have reviewed all pertinent clinical information: Yes Notes (Text): 07/29/18 14:39 Dyspnea, CHF exacerbation CAD DM/HTN Hypothyroidism Transaminitis - Diet as tolerated - Obtain viral hepatitis and autoimmune panel testing - Obtain iron studies - Would suggest holding statin for time being given elevation of AST/ALT > 4 times upper limit of normal - Continue to monitor LFTs and avoid hepatotoxic therapies - Will continue to monitor patient clinical course
[2018-07-29] MEDS ORDERED: Aminophylline 25 mg/ml Inj ONE (09:43)
[2018-07-29] MEDS ORDERED: Levothyroxine 25 MCG TAB PO SCH (10:00)
--- NOTE | 2018-07-29 11:18 | US ---
Date of service: 07/29/2018 HISTORY: elevated LFTs COMPARISON: None. TECHNIQUE: Sonographic evaluation of the right upper quadrant of the abdomen. FINDINGS: LIVER: Measures 14.8 x 9.6 x 16.5 cm in length. Normal echogenicity of the liver parenchyma. No mass. No intrahepatic bile duct dilatation. Patent portal vein hepatopetal portal vein flow GALLBLADDER: Nonvisualized. Compatible with prior cholecystectomy. COMMON BILE DUCT: Measures 3.6 mm. No stones. No dilatation. PANCREAS: Nonvisualized RIGHT KIDNEY: Measures 10.6 x 4.7 x 4.8 cm in length. Normal echogenicity. No calculus, exophytic cyst off upper pole 11 x 9 x 13 mm. And another exophytic off the anterior midpole right kidney 10 x 7 x 10 mm.. No hydronephrosis. AORTA: No aneurysmal dilatation. IVC: Unremarkable. OTHER FINDINGS: None . IMPRESSION: Unremarkable appearing liver. Nonvisualized gallbladder-cholecystectomy status inferred Multiple small exophytic right renal cortical cyst as above.
[2018-07-29] MEDS: SACUBITRIL 49mg/VALSARTAN 51mg tab PO SCH (12:17)
[2018-07-29 13:12] VITALS: BP 175/109; PULSE 79
--- NOTE | 2018-07-29 14:18 | PN ---
DATE: 07/29/2018 SUBJECTIVE: He is resting now, sitting out of bed to chair. He is n.p.o. to go for a stress test this morning with Cardiology. Also, his liver enzymes are quite elevated. I am waiting for GI to see him. There is also an order this morning for an ultrasound of the liver that will be done after the stress test. He is very upset with the situation because he is very hungry. He does not want to be fasting for the stress test, but he has to. MEDICATIONS: He is on Ecotrin, Entresto, Fergon, Glucophage, Lasix, Lipitor, Lopressor, magnesium, Pepcid, and Synthroid. PHYSICAL EXAMINATION: VITAL SIGNS: He has a 98.2 temp, 92 pulse, 168/92 blood pressure, 20 respiratory rate, and 97% O2 sat on room air. HEENT: Head is atraumatic and normocephalic. HEART: Regular rate. LUNGS: Decreased breath sounds. ABDOMEN: Soft. EXTREMITIES: Trace edema, if any. He was diuresed when he came in. LABORATORY DATA: He has sodium 141, potassium 3.6, BUN 20, creatinine 1.8, GFR is 37, sugar is 119, calcium is 9.4, total bili is 2.9 elevated, AST is 245 elevated, ALT is 278 elevated, alk phos is 241 and yesterday they were high, but now they are higher. Troponin-I is 0.08. BNP was 20,900 before the Lasix. 7.4 white count, 10 hemoglobin, 31.3 hematocrit with 283 platelets. ASSESSMENT AND PLAN: We will see him on observation. He has a few things going on; 1. Congestive heart failure and stress test for today. 2. Elevating liver enzymes. We are awaiting liver ultrasound and GI to evaluate. Best case scenario is that he might do very well with the stress test. Liver is okay. We can discharge him this afternoon, otherwise I see him being here one more day in Observations depending on what GI and Cardiology will see this morning. He had congestive heart failure, elevated liver enzymes, and dyspnea on exertion. Jai Nicole DO [facility] # [id number]
--- NOTE | 2018-07-29 15:13 | CARD ---
APPROVED REPORT Date of service: 07/29/2018 Protocol: LEXISCAN Test Type: Lexiscan Sestamibi Stress Test Attending Physician: Dr. Everett De La Fuente Referring Physician: Dr. Jai Nicole Test Indications: CAD Height:5 ft 7 in Weight:194lbs Medications: lasix Medical History: 73 year old male with h/o [place], htn and diabetes Target HR: 148 bpm Resting ECG: left ventricular hypertrophy Resting Heart Rate: 96 bpm Resting Blood Pressure: 142/78mmHg Submaximum (85%): 126 bpm PROCEDURE Pharmacologic stress testing was performed using 0.4mg per 5ml of regadenoson given intravenously over 7-10 seconds. POST EXERCISE Reason for Termination: Protocol completed Target HR: No Max HR: 89 bpm 67% of Maximum Predicted HR: 148 bpm Exercise duration: 00:30 min:sec, 0 Stage Exercise capacity: 1.0METs Max Blood Pressure: 142/78mmHg Blood Pressure response to exercise: normal resting BP - appropriate response Heart Rate response to exercise: appropriate Chest Pain: No, none Angina index: 0 Arrhythmia: Yes, ventricular premature beats-isolated, couplets ST Change: No, none Deviation: 0 mm INTERPRETATION Stress EKG Conclusion: Normal infusion phase of Lexiscan NST. Signed by Everett De La Fuente Electronically Approved: 07/29/2018 10:55:53 EXAM: Myocardial Perfusion STRESS/REST Stress Test Type: Pharmacologic Imaging Protocol The imaging protocol used to acquire images was Stress Tc-99m/rest Tc-99m 1 day Rest Spect myocardial perfusion imaging was performed in supine position 60 minutes following the injection of 30.5 mCi of Tc-99 Myoview. At peak stress, the patient was injected intravenously with 10.8mCi of Tc-99 tetrofosmin after an infusion time of 0 minutes and 10 seconds. Gated Stress Spect was performed 75 minutes after intravenous Tc-99 Myoview injection. The images were gated to evaluate regional wall motion and calculate ventricular ejection fraction.Images were reconstructed using backfilter projection method in short horizontal and verticle long axis. Spect slices were generated. LV Perfusion The quality of the study is good. The left ventricle is markedly enlarged in size. The right ventricle is unremarkable. The lung uptake is bordelrine increased. The distribution of tracer reveals moderately decreased perfusion in the inferior wall on the stress study. The remainder of the LV myocardium is unremarkable. The rest myocardial perfusion study shows no significant change. Wall Motion Wall motion study shows diffuse hypokinesis of the left ventricle. LVEF = 17%. Conclusion 1. Abnormal SPECT myocardial perfusion study. 2. Fixed, inferior defect is most likely due to diaphragmatic attenuation. 3. Severe LV dysfunction with diffuse hypokinesis. 4. The above findings are suggestive of cardiomyopathy. 5. In comparison with the last study of 08/06/2016, the perfusion patterns are similar. However, there is further deterioration of LV contractility.
[2018-07-29] MEDS ORDERED: SACUBITRIL 97mg/ VALSARTAN 103mg tab PO SCH (18:00)
--- NOTE | 2018-07-29 20:00 | US ---
PROCEDURE: Portal vein duplex ultrasound. CLINICAL HISTORY: Deteriorating liver function. Evaluate for portal vein thrombosis. PHYSICIAN(S): Yang Miller M.D. FINDINGS: The extrahepatic portal vein is patent with hepatopetal flow. No sonographic evidence for thrombus or obstruction is seen. The 3 hepatic veins are visualized centrally and patent. The hepatic artery is patent and prominent. The spleen is normal in size. No ascites is appreciated. IMPRESSION: 1. Patent portal vein with hepatopetal flow.
--- NOTE | 2018-07-30 04:23 | CON ---
DATE: 07/29/2018 CONSULTATION REQUESTING PHYSICIAN: Dr. Nicole. REASON FOR CONSULTATION: Progressive dyspnea. HISTORY OF PRESENT ILLNESS: This is a 73-year-old man with a history of congestive cardiomyopathy, hypertension, and diabetes, who presented with worsening exertional dyspnea. He had previously been on home dobutamine infusions; however, this was recently discontinued. He claims compliance with his medication, but not always with his sodium and fluid restriction. He denies any chest pain. PAST MEDICAL HISTORY: His past history is notable for the problems mentioned above. He has a history of osteoarthritis, hypothyroidism, lumbar disc disease. PAST SURGICAL HISTORY: He has undergone a prior cholecystectomy. HOME MEDICATIONS: His medications at home include Entresto 49/51 mg b.i.d., Synthroid 25 mcg daily, Lasix 40 mg daily, ferrous sulfate, Pepcid, Lipitor 10 mg daily, metoprolol 50 mg b.i.d., and Glucophage 500 mg b.i.d. as well as aspirin. SOCIAL HISTORY: He is a smoker of a half pack per day. He denies alcohol abuse. ALLERGIES: NO DRUG ALLERGIES. FAMILY HISTORY: Both parents were , the cause unknown; no family history of premature heart disease. REVIEW OF SYSTEMS: A 12-point review of systems is notable for intermittent PND and orthopnea. He has also had mild edema. PHYSICAL EXAMINATION: GENERAL: He is an overweight middle-aged man. VITAL SIGNS: His blood pressure is 168/90 with a pulse of 94, respirations are 22. He is afebrile. HEENT: Normocephalic, atraumatic. NECK: Supple. JVD is present at 60 degrees. CHEST: Diminished breath sounds at the bases with bilateral rhonchi as well as bibasilar rales. HEART: PMI displaced laterally with soft tones noted. Systolic murmur is present at the lower left sternal border. ABDOMEN: Soft, mildly obese, nontender with normoactive bowel sounds. EXTREMITIES: Revealed 1+ leg edema. DIAGNOSTIC DATA: Potassium 3.6, BUN and creatinine 20 and 1.8. White count 7.4, hemoglobin and hematocrit of 10 and 31.3, with a platelet count of 283,000. Electrocardiogram reveals a sinus rhythm with PVCs, left atrial abnormality, LVH with repolarization abnormalities present. Chest x-ray reveals increased cardiac silhouette with mild bilateral congestive changes. IMPRESSION: 1. Decompensated congestive heart failure, [id number], secondary to congestive cardiomyopathy. 2. History of hypertension with suboptimal control. 3. History of diabetes. 4. Rest of the problems as noted. RECOMMENDATIONS: His Entresto dose will be increased as tolerated. Spironolactone will be added to his regimen as well. IV Lasix will continue for now. A stress test has been scheduled for this morning and an echocardiogram will be ordered as well. The need for aggressive limitation of his sodium and fluid intake was discussed with him. I will be happy to continue to follow along as needed. Everett De La Fuente MD
== END 2018-07-29 13:47 | disposition left against medical advice (07) ==
LOC: ED 10:36 → ERH 12:17 → 3RNO 15:02
PROVIDERS: ADMIT Family Medicine; ATTEND Family Medicine
DX: I11.0 Hypertensive heart disease with heart failure (principal); I50.23 Acute on chronic systolic (congestive) heart failure; I25.10 Atherosclerotic heart disease of native coronary artery without angina pectoris; I42.0 Dilated cardiomyopathy; J44.9 Chronic obstructive pulmonary disease, unspecified; E03.9 Hypothyroidism, unspecified; E11.9 Type 2 diabetes mellitus without complications; E78.00 Pure hypercholesterolemia, unspecified; E78.5 Hyperlipidemia, unspecified; F17.210 Nicotine dependence, cigarettes, uncomplicated; F41.1 Generalized anxiety disorder; I25.2 Old myocardial infarction; Z79.84 Long term (current) use of oral hypoglycemic drugs; Z79.890 Hormone replacement therapy; Z79.899 Other long term (current) drug therapy; Z86.73 Personal history of transient ischemic attack (TIA), and cerebral infarction without residual deficits; Z87.01 Personal history of pneumonia (recurrent); Z90.49 Acquired absence of other specified parts of digestive tract; Z91.012 Allergy to eggs
CPT/HCPCS: 36415; 71045; 76705; 78452; 80053; 82248; 82550; 82948; 83615; 83735; 83880; 84484; 85025; 85027; 93005; 93017; 93975; 96374; 99284; A9502; G0378; J1940

== ENCOUNTER 2018-08-13 11:30 | Inpatient (IN) | payer MEDICARE, MEDICAID ==
--- NOTE | 2018-08-13 12:02 | ED PDOC ---
Arrival/HPI - General Chief Complaint: Shortness Of Breath Time Seen by Provider: 08/13/18 11:35 Historian: Patient, Partner - History of Present Illness Narrative History of Present Illness (Text): 08/13/18 11:58 73 year old M with pmh of Cardiomyopathy, CHF(Lasix), HTN, CAD, Hypothyroidism and herniated disks presents complaining of shortness of breath x3wks. Patient visited Dr. Nicole 3days ago who advised patient to present to ER if symptoms worsening. Spouse also mentioned patient has been hallucinating. Patient denies increased HR, abdominal pain, nausea, vomiting, diarrhea. Patient is a smoker. PMD: Dr. Nicole Symptom Course: Unchanged Activities at Onset: Light Context: Home Past Medical History - Provider Review Nursing Documentation Reviewed: Yes - Infectious Disease Hx of Infectious Diseases: None - Tetanus Immunization Tetanus Immunization: Unknown - Cardiac Hx Cardiac Disorders: Yes (CARDIOMYOPATHY-WAS ON DOBUTAMINE DRIP.D/C) Hx Circulatory Problems: Yes Hx Congestive Heart Failure: Yes Hx Hypertension: Yes Hx Peripheral Edema: Yes - Pulmonary Hx Respiratory Disorders: Yes (SMOKED 3 PPD THEN CUT IT DOWN TO PPD LASTED X 2 WEEKS THEN 2 CIG A DAY NOW.) Hx Pneumonia: Yes - Neurological Hx Neurological Disorder: Yes - HEENT Hx HEENT Disorder: Yes (WEARS RX GLASSES) - Renal Hx Renal Disorder: No - Endocrine/Metabolic Hx Endocrine Disorders: Yes Hx Diabetes Mellitus Type 2: Yes Hx Hypothyroidism: Yes - Hematological/Oncological Hx Blood Disorders: Yes Hx Anemia: Yes - Integumentary Hx Dermatological Disorder: Yes Other/Comment: ble dry skin. 07-28-18 BILATERAL LE EDEMA +2 PITTING.BILATERAL SCARRING TO H/O OF BILATEAL LE WITH RECONCSTRUCTIVE SX WITH PLATE AND RODS 1990. RIGHT LOWER ABDOMIEN SCARRING -CHOLECYSTECTOMY. RIGHT CHEST WALL PORT 2018 - Musculoskeletal/Rheumatological Hx Musculoskeletal Disorders: Yes (TORTICOLLIS) Hx Arthritis: Yes Hx Falls: No Hx Herniated Disk: Yes Hx Unsteady Gait: Yes (WALKER CANE) - Gastrointestinal Hx Gastrointestinal Disorders: Yes Hx Gall Bladder Disease: Yes (CHOLECYSTECTOMY) - Genitourinary/Gynecological Hx Genitourinary Disorders: No - Psychiatric Hx Psychophysiologic Disorder: Yes Hx Anxiety: Yes Hx Depression: Yes Hx Emotional Abuse: No Hx Physical Abuse: No Hx Substance Use: No - Surgical History Hx Cardiac Catheterization: Yes Hx Cholecystectomy: Yes Hx Orthopedic Surgery: Yes (BLLE RECONTRUCTION WITH PLATES AND RODS IN 1990) Other/Comment: pt stated "I was bow legged" had reconstruction with plates and rods 1990 to both knees, rcw pac 2 weeks ago - Anesthesia Hx Anesthesia Reactions: No Hx Malignant Hyperthermia: No - Suicidal Assessment Feels Threatened In Home Enviroment: No Family/Social History - Physician Review Nursing Documentation Reviewed: Yes Family/Social History: Unknown Family HX Smoking Status: Current Some Days Smoker Hx Alcohol Use: No Hx Substance Use: No Hx Substance Use Treatment: No Allergies/Home Meds Allergies/Adverse Reactions: Allergies eggs Allergy (Intermediate, Uncoded 08/13/18 11:43) RASH Home Medications: Home Meds Medication Instructions Recorded Confirmed Aspirin [Aspirin EC] 81 mg PO DAILY 07/03/14 07/28/18 Metoprolol Tartrate [Lopressor] 50 mg PO BID 05/29/15 07/28/18 metFORMIN [glucOPHAGE] 500 mg PO BID 12/26/16 07/28/18 Atorvastatin [Lipitor] 10 mg PO DIN 07/28/18 07/28/18 Famotidine [Pepcid] 20 mg PO DAILY 07/28/18 07/28/18 Ferrous Sulfate [Ferosul] 325 mg PO DAILY 07/28/18 07/28/18 Furosemide [Lasix] 40 mg PO DAILY 07/28/18 07/28/18 Ibuprofen [Advil] 200 mg PO BID 07/28/18 07/28/18 Levothyroxine [Levoxyl] 0.025 mg PO DAILY 07/28/18 07/28/18 Sacubitril/Valsartan [Entresto 49 1 tab PO DAILY 07/28/18 07/28/18 mg-51 mg] Review of Systems - Physician Review All systems were reviewed & negative as marked: Yes - Review of Systems ENT: absent: Sore Throat, Rhinorrhea, Epistaxis Respiratory: SOB Cardiovascular: absent: Palpitations Gastrointestinal: absent: Abdominal Pain, Diarrhea, Nausea, Vomiting Genitourinary Male: absent: Dysuria, Hematuria Skin: absent: Rash Neurological: absent: Headache, Dizziness Psychiatric: Other (hallucinations) Physical Exam Vital Signs Reviewed: Yes Vital Signs Temp Pulse Resp BP Pulse Ox 08/13/18 11:41 98.3 F 86 18 157/93 H 98 Temperature: Afebrile Blood Pressure: Hypertensive Pulse: Regular Respiratory Rate: Normal Appearance: Positive for: Well-Appearing, Non-Toxic, Comfortable Pain Distress: None Mental Status: Positive for: Alert and Oriented X 3 - Systems Exam Head: Present: Atraumatic, Normocephalic Pupils: Present: PERRL Extroacular Muscles: Present: EOMI Conjunctiva: Present: Normal Mouth: Present: Moist Mucous Membranes Neck: Present: Normal Range of Motion Respiratory/Chest: Present: Decreased Breath Sounds (b/l), Rales. No: Respiratory Distress, Accessory Muscle Use Cardiovascular: Present: Regular Rate and Rhythm, Normal S1, S2. No: Murmurs Abdomen: Present: Distention. No: Tenderness, Peritoneal Signs, Rebound, Guarding Back: Present: Normal Inspection Upper Extremity: Present: Normal Inspection. No: Cyanosis, Edema Lower Extremity: Present: Normal Inspection. No: Edema Neurological: Present: GCS=15, CN II-XII Intact, Speech Normal Skin: Present: Warm, Dry, Normal Color. No: Rashes Psychiatric: Present: Alert, Oriented x 3, Normal Insight, Normal Concentration Medical Decision Making ED Course and Treatment: 08/13/18 12:23 Impression: 73 year old M presents complaining of shortness of breath x3 wks Plan: -- Labs -- CXR --Lasix -- Urinalysis -- Reassess and disposition Progress Notes: 08/13/18 13:16 Labs reveal elevation in BNP with no evidence of leukocytosis. Mild elevation in creatinineof 2.1(previously 1.8) noted with lactate of 3.3. Call placed to Dr. Nicole(PCP). - Lab Interpretations Lab Results: 08/13/18 12:12 08/13/18 12:12 Lab Results 08/13/18 12:12: Sodium 142, Chloride 103, Potassium 3.9, Carbon Dioxide 25, Anion Gap 17, BUN 36 H, Creatinine 2.1 H, Est GFR ( Amer) 38, Est GFR (Non-Af Amer) 31, Random Glucose 178 H, Calcium 9.6, Magnesium 1.8, Total Bilirubin 2.8 H, AST 98 H D, ALT 132 H, Alkaline Phosphatase 306 H D, Troponin I 0.06 D, NT-Pro-B Natriuret Pep 09625 H, Total Protein 8.0, Albumin 4.0, Globulin 4.0, Albumin/Globulin Ratio 1.0 L 08/13/18 12:12: PT 18.7 H, INR 1.65, APTT 41.7 H 08/13/18 12:12: WBC 6.7, RBC 4.25, Hgb 10.7 L, Hct 33.4 L, MCV 78.6 L, MCH 25.2, MCHC 32.0, RDW 17.6 H, Plt Count 287, MPV 10.3, Neut % (Auto) 72.5 H, Lymph % (Auto) 14.3 L, [place] % (Auto) 12.2 H, Eos % (Auto) 0.6 L, Baso % (Auto) 0.4, Lymph # (Auto) 1.0 L, [place] # (Auto) 0.8 H, Eos # (Auto) 0.0, Baso # (Auto) 0.03, Absolute Neuts (auto) 4.87 08/13/18 12:05: pO2 26 L, VBG pH 7.38, VBG pCO2 45.0, VBG HCO3 26.6, VBG Total CO2 28.0, VBG O2 Sat (Calc) 37.9 L, VBG Base Excess 1.0, VBG Potassium 4.0, Sodium 140.0, Chloride 105.0, Glucose 176 H, Lactate 3.3 H, FiO2 21.0, Crit Value Called To Manjeet connolly, Crit Value Called By Michelle curry, Blood Gas Notified Time 1221, Venous Blood Potassium 4.0 I have reviewed the lab results: Yes - RAD Interpretation Narrative RAD Interpretations (Text): 08/13/18 13:31 Chest X-ray -- No active pulmonary disease Radiology Orders: 08/13/18 11:52 CHEST PORTABLE [RAD] [employer] Developer: Radiologist - EKG Interpretation EKG Interpretation (Text): 08/13/18 19:26 NSR @ 76 BPM, Intermittent fusion complexes, LVH with early repolarization, prolonged QT interval Interpreted by ED Physician: Yes Type: 12 lead EKG - Scribe Statement The provider has reviewed the documentation as recorded by the Andreaibolga lidia Guevara All medical record entries made by the Scribe were at my direction and personally dictated by me. I have reviewed the chart and agree that the record accurately reflects my personal performance of the history, physical exam, medical decision making, and the department course for this patient. I have also personally directed, reviewed, and agree with the discharge instructions and disposition. Disposition/Present on Arrival - Present on Arrival History of DVT/PE: No History of Uncontrolled Diabetes: No Urinary Catheter: No History of Decub. Ulcer: No History Surgical Site Infection Following: None - Disposition Disposition: HOSPITALIZED
[2018-08-13 12:21] LABS: VENOUS BLOOD GAS PO2 26 mm/Hg (30-55); VENOUS BLOOD PH 7.38 (7.32-7.43)
[2018-08-13 12:24] LABS: BASO # 0.03 K/mm3 (0.0-2.0); BASO % 0.4 % (0.0-3.0); EOS % 0.6 % (1.5-5.0); HEMOGLOBIN 10.7 g/dL (14.0-18.0); LYMPH % 14.3 % (22.0-35.0); MEAN CELL VOLUME 78.6 fl (80.0-105.0); MEAN CORPUSCULAR HEMOGLOBIN 25.2 pg (25.0-35.0); MEAN PLATELET VOLUME 10.3 fl (7.0-11.0); MONO # 0.8 (0.1-0.6); MONO % 12.2 % (1.0-6.0); RBC 4.25 10^6/uL (3.5-6.1); RED CELL DISTRIBUTION WIDTH 17.6 % (11.5-14.5); WHITE BLOOD COUNT 6.7 10^3/uL (4.5-11.0)
--- NOTE | 2018-08-13 12:31 | RAD ---
Date of service: 08/13/2018 HISTORY: sob COMPARISON: 07/28/2018 FINDINGS: Right-sided central venous catheter terminates in the SVC. LUNGS: The lungs are well inflated. There is mild pulmonary venous congestion PLEURA: No pleural effusions or pneumothorax. CARDIOVASCULAR: There is persistent severe cardiomegaly. No aortic atherosclerotic calcifications present. OSSEOUS STRUCTURES: Within normal limits for the patient's age. VISUALIZED UPPER ABDOMEN: Normal. OTHER FINDINGS: None. IMPRESSION: No active pulmonary disease.
[2018-08-13 12:39] LABS: INR 1.65; PARTIAL THROMBOPLASTIN TIME 41.7 Seconds (26.9-38.3); PROTHROMBIN TIME 18.7 SECONDS (9.4-12.5)
[2018-08-13 12:44] LABS: TROPONIN I 0.06 ng/mL
[2018-08-13 12:52] LABS: CALCIUM 9.6 mg/dL (8.4-10.5)
[2018-08-13 15:35] LABS: VENOUS BLOOD GAS BASE EXCESS 1.5 mmol/L (0.0-2.0); VENOUS BLOOD GAS PO2 25 mm/Hg (30-55)
[2018-08-13 16:00] LABS: URINE BILIRUBIN NEGATIVE (NEGATIVE); URINE BLOOD NEGATIVE (NEGATIVE); URINE GLUCOSE (UA) NEGATIVE (NEGATIVE); URINE LEUKOCYTE ESTERASE SMALL Leu/uL (NEGATIVE); URINE PROTEIN 100 mg/dL (<30 mg/dL)
[2018-08-13 16:05] LABS: URINE APPEARANCE CLEAR (CLEAR); URINE COLOR YELLOW (YELLOW)
[2018-08-13 16:09] LABS: URINE BACTERIA TRACE /hpf
[2018-08-13] MEDS: Insulin Reg-MEDIUM-Coverage SC SCH ×2 (17:58→22:55)
--- NOTE | 2018-08-13 19:13 | CARD ---
APPROVED REPORT Date of service: 08/13/2018 EKG Measurement Heart [id number] <Conclusion> Sinus rhythm with fusion complexes Possible Left atrial enlargement Left ventricular hypertrophy with repolarization abnormality Prolonged QT Abnormal ECG
[2018-08-13 19:21] VITALS: BMI 32.2
--- NOTE | 2018-08-13 23:05 | HP ---
DATE OF EXAM: 08/13/2018 HISTORY OF PRESENT ILLNESS: I know Junior for very long time. He has been having very bad heart with cardiomyopathy, CHF, hypertension, CAD, hypothyroidism, herniated disk for years, has been short of breath on and off for 3 weeks and recently 3 days ago increased his Lasix to twice a day hoping to prevent the hospital admission. He was taking the Lasix 40 mg twice a day, but steadily got worse with shortness of breath and his edema began to get worse, so the Lasix did not do anything. PAST MEDICAL AND SURGICAL HISTORY: He has a past medical history of cardiomyopathy. He was on dobutamine drip, but that was stopped. He has circulatory problems and congestive heart failure. He smokes three packs per day then cut it down and one pack a less than 2 weeks now. He has had pneumonias in the past. He wears glasses. He has diabetes, hypothyroidism, and anemia history. He has had dry skin bilateral left lower extremity and right lower extremity edema and +2 pitting edema with scarring, reconstruction surgery with plates and rods, right lower abdomen scarring, and cholecystectomy. He has a right chest wall port. He has torticollis history, arthritis, herniated disk, and he walks with a cane. He had a cholecystectomy. He has anxiety, depression, cholecystectomy, cardiac catheterization, and bilateral lower extremity reconstruction with plates and rods in 1990. He walks bow-legged. FAMILY HISTORY: Unknown family history. SOCIAL HISTORY: He still smokes cigarettes. No alcohol. No drugs. ALLERGIES: EGGS. MEDICATIONS: He takes aspirin, Lopressor, Glucophage, Lipitor, Pepcid, Feosol, Lasix 40 twice a day for the past 3 days otherwise one a day, Advil 200, Levoxyl, and Entresto. REVIEW OF SYSTEMS: No sore throat. No rhinorrhea. No epistaxis. No vision changes. No hearing changes. He is quite short of breath. No cough. No palpitation or chest pain. No abdominal pain. No nausea, vomiting, constipation, or diarrhea. No problems urinating. Skin is intact that he knows of. No rashes or ulcers. No headache or dizziness. No hallucinations. PHYSICAL EXAMINATION: VITAL SIGNS: He has a 98.3 temperature, 86 pulse, 18 respiratory rate, 157/90 blood pressure, and 90% O2 sat on room air. GENERAL: He is well-appearing, short of breath. Legs are swollen. Alert and oriented x3. HEENT: Head; atraumatic and normocephalic. Extraocular muscles are intact. Pupils equally react to light. Throat is moist. NECK: Supple. HEART: Regular rate. Normal S1 and S2. LUNGS: Decreased breath sounds bilaterally. There are rales in the bases. ABDOMEN: Soft and nontender. Positive bowel sounds. No guarding. No rebound. No CVA tenderness. EXTREMITIES: Has +2/4 pitting edema bilateral lower extremities and LILY stockings. NEUROLOGIC: GCS is 15. Cranial nerves II through XII grossly intact. Speech is normal. Alert and oriented x3. SKIN: Warm and dry. No apparent rashes or ulcers. LYMPHS: Thyroid midline. No palpable appreciable lymphadenopathy. No JVD. No meningeal signs. LABORATORY DATA: He had multiple tests done. Chest x-ray shows no active disease. He has 142 sodium, potassium 3.9, BUN 36, creatinine 2.1, GFR is 31, sugar is 178, calcium 9.6, magnesium 1.8, and total bili is 2.8. AST is 98, ALT is 132, alk phos is 306, and elevated troponin I is 0.06. BNP is mt high at 21,100, total protein is 8, and lactate was 3.3 high. He has a 1.65 INR. White count 6.7, hemoglobin 10.7, hematocrit 32.4 with 287 platelets. ASSESSMENT AND PLAN: He is going to have a consult with Cardiology, Dr. Hays. He will be on Ecotrin, Entresto, iron, Lasix 40 IV daily, Lipitor, metoprolol, Pepcid, and Synthroid. We will check his labs tomorrow. He will have a oxygen and insulin coverage, hopefully will improve. He is here for congestive heart failure, shortness of breath, coronary artery disease with diabetes history. Jai Nicole DO
[2018-08-14 06:47] LABS: HEMOGLOBIN 10.5 g/dL (14.0-18.0); MEAN CELL VOLUME 78.6 fl (80.0-105.0); MEAN CORPUSCULAR HEMOGLOBIN 24.5 pg (25.0-35.0); MEAN CORPUSCULAR HGB CONC 31.2 g/dl (31.0-37.0); MEAN PLATELET VOLUME 10.2 fl (7.0-11.0); RBC 4.29 10^6/uL (3.5-6.1); RED CELL DISTRIBUTION WIDTH 17.6 % (11.5-14.5)
[2018-08-14 07:14] LABS: CALCIUM 9.7 mg/dL (8.4-10.5)
[2018-08-14] MEDS: Insulin Reg-MEDIUM-Coverage SC SCH ×4 (07:41→22:14)
[2018-08-14] MEDS: SACUBITRIL 49mg/VALSARTAN 51mg tab PO SCH (10:42)
[2018-08-14] MEDS: Levothyroxine 25 MCG TAB PO SCH (10:43)
[2018-08-14] MEDS ORDERED: MethylPREDNISolone 40 mg Vial IVP SCH (12:15)
[2018-08-14] MEDS: MethylPREDNISolone 40 mg Vial IVP SCH ×2 (14:48→21:19)
--- NOTE | 2018-08-14 15:47 | PN ---
DATE: 08/14/2018 SUBJECTIVE: I saw him sitting chair, very short of breath, legs are much more swollen when he came in. He is very congested. He is on oxygen and still little short of breath. He is uncomfortable. PHYSICAL EXAMINATION: VITAL SIGNS: He has 98.9 temp, 83 pulse, blood pressure is quite high at 158/96, 22 respiratory rate, and 96% O2 sat on room air. HEENT: Head is atraumatic and normocephalic. He is not breathing well. He does not look well. HEART: Regular rate. LUNGS: Decreased breath sounds. Congestion bilaterally, both lungs. ABDOMEN: Soft and obese. EXTREMITIES: Pitting edema of +4/4 up into the ankle which is worse than yesterday. MEDICATIONS: He is currently on Apresoline, Ecotrin, Entresto, FeoSol, Imdur, Lasix - I bumped it from 40 b.i.d. to 60 b.i.d., Lipitor, Lopressor, Norvasc 5 mg his blood pressure is high, Pepcid, Solu-Medrol is 40 IV every 12 hours, we are going to make it IV every 8 hours, Synthroid. LABORATORY DATA: He has 7 white count, 12.5 hemoglobin, 33.7 hematocrit with 281 platelets, 1.6 of INR, lactate 2.8. He has 142 sodium, potassium 4.1, BUN 38, creatinine 2.2, GFR is 30, sugar is 121, calcium is 9.7, total bili is 3.2, AST is 129, ALT is 155, alk phos is 331. His liver is congested. Total protein 7.9. PLAN: We are adjusting his medications. He has consult with Cardiology. I am going to get pulmonary involved also. We will continue aggressive treatment and care. Jai Nicole DO MTDD
--- NOTE | 2018-08-14 19:18 | CON ---
DATE OF CONSULTATION: 08/14/2018 REFERRING PHYSICIAN: Jai Nicole DO REASON FOR CONSULTATION: Worsening dyspnea. HISTORY OF PRESENT ILLNESS: This is a 73-year-old man, well known to me with a history of congestive heart failure secondary to dilated cardiomyopathy as well as a history of hypertension and diabetes, who was admitted with worsening dyspnea and leg edema. He claims compliance with his medications and sodium and fluid restriction as an outpatient. He was recently admitted 2 weeks ago with similar presentation, but insists on leaving the hospital early. A stress test at that time had shown no evidence of ischemia and evidence of severe LV dysfunction. He had previously been maintained on home dobutamine therapy, but was not happy with the restrictions that provided and asked that this be discontinued. He does have a history of hypertension and diabetes. PAST MEDICAL HISTORY: Also notable for hypothyroidism, lumbar disc disease and osteoarthritis. He has undergone a prior cholecystectomy. FAMILY HISTORY: Both parents from cause unknown. SOCIAL HISTORY: He continues to smoke approximately half pack per day. He denies alcohol use. MEDICATIONS AT HOME: Aspirin, Entresto 49/51 mg daily, Glucophage 500 mg b.i.d., Lasix 40 mg daily, Lipitor 10 mg daily, metoprolol 50 mg b.i.d., Pepcid and Levoxyl 25 mcg daily. ALLERGIES: NONE. REVIEW OF SYSTEMS: A 12-point review of systems is notable for intermittent PND and orthopnea. PHYSICAL EXAMINATION: GENERAL: He is a middle-aged man who appears comfortable at rest. VITAL SIGNS: His blood pressure is 158/96 with pulse of 82 and sinus, respirations are 16. He is afebrile. HEENT: Normocephalic, atraumatic. NECK: Supple. JVD present at 60 degrees. CHEST: Bibasilar rales heard. HEART: PMI displaced laterally with soft tones noted. A systolic murmur is present at the lower left sternal border as well as at the apex. ABDOMEN: Soft and nontender with normoactive bowel sounds. EXTREMITIES: 2+ leg edema present to the knees. DIAGNOSTICS: Potassium 4.1, BUN and creatinine 38 and 2.2. White count 7.0, hemoglobin and hematocrit 10.5 and 33.7, MCV is 78.6, platelet count 281,000. Venous blood gas showed pH 7.42, pO2 of 25, pCO2 of 43. AST and ALT are elevated at 129 and 155 with bilirubin of 3.2. BNP is 21,100. Alkaline phosphatase is 331. Troponin 0.06. Chest x-ray reveals an enlarged cardiac silhouette with mild congestive changes and blunting of the costophrenic angles. Electrocardiogram reveals sinus rhythm with fusion complexes, left atrial abnormality, and LVH with repolarization abnormalities. IMPRESSION: 1. Decompensated congestive heart failure secondary to congestive cardiomyopathy, [id number], systolic. 2. Hypertension with suboptimal control. 3. History of diabetes. 4. Elevated transaminases and bilirubin. Warrants further evaluation if not previously assessed. RECOMMENDATIONS: IV Lasix will be continued. Given his LV dysfunction, a trial of combination isosorbide and hydralazine will be initiated. His Entresto will continue for now; however, close monitoring of his renal function will be necessary. The need for remaining in the hospital employs he is adequately diuresed and the need for close monitoring of his sodium and fluid intake as well as daily weights as an outpatient was emphasized to him. Although there is no date as to suggest improved mortality with home ionotropic infusion, resumption of dobutamine at home may be helpful to reduce his recurrent hospitalizations for heart failure. This was discussed with him as well. Thank you for this consultation. I would be happy to follow along with you as needed. Everett De La Fuente MD [facility] # [id number]
[2018-08-14 20:32] LABS: BASO # 0.01 K/mm3 (0.0-2.0); BASO % 0.2 % (0.0-3.0); EOS % 0.2 % (1.5-5.0); HEMOGLOBIN 10.8 g/dL (14.0-18.0); LYMPH # 0.4 (1.2-3.4); LYMPH % 7.4 % (22.0-35.0); MEAN CELL VOLUME 78.3 fl (80.0-105.0); MEAN CORPUSCULAR HEMOGLOBIN 25.5 pg (25.0-35.0); MEAN CORPUSCULAR HGB CONC 32.6 g/dl (31.0-37.0); MEAN PLATELET VOLUME 10.3 fl (7.0-11.0); MONO # 0.2 (0.1-0.6); RBC 4.23 10^6/uL (3.5-6.1); RED CELL DISTRIBUTION WIDTH 17.5 % (11.5-14.5); WHITE BLOOD COUNT 5.4 10^3/uL (4.5-11.0)
[2018-08-15] MEDS: MethylPREDNISolone 40 mg Vial IVP SCH (05:48)
[2018-08-15 07:01] LABS: HEMOGLOBIN 10.5 g/dL (14.0-18.0); MEAN CELL VOLUME 77.5 fl (80.0-105.0); MEAN CORPUSCULAR HEMOGLOBIN 24.6 pg (25.0-35.0); MEAN CORPUSCULAR HGB CONC 31.7 g/dl (31.0-37.0); MEAN PLATELET VOLUME 10.3 fl (7.0-11.0); RBC 4.27 10^6/uL (3.5-6.1); RED CELL DISTRIBUTION WIDTH 17.6 % (11.5-14.5); WHITE BLOOD COUNT 4.5 10^3/uL (4.5-11.0)
[2018-08-15 08:02] LABS: ALBUMIN 3.8 g/dL (3.0-4.8); CALCIUM 9.4 mg/dL (8.4-10.5)
--- NOTE | 2018-08-15 08:16 | PN ---
DATE: 08/15/2018 SUBJECTIVE: The patient seen lying in bed on 3R. He is somewhat restless. His edema is improved. CURRENT MEDICATIONS: Include hydralazine 25 mg t.i.d., aspirin once daily, Entresto 49/51 mg daily, Isordil 20 mg b.i.d., Lasix 60 mg IV b.i.d., Lipitor 10 mg daily, metoprolol 50 mg b.i.d., Norvasc 5 mg daily, Pepcid, Solu-Medrol, Synthroid 25 mcg. PHYSICAL EXAMINATION GENERAL: He is a middle-aged man who appears comfortable at rest. VITAL SIGNS: Blood pressure 162/96 with pulse 90 and sinus, respirations are 14. He is afebrile. HEENT: JVD present at 60 degrees. Carotid upstroke 1+ bilaterally. CHEST: Diminished breath sounds at the bases with few scattered rhonchi and rales heard. HEART: PMI displaced laterally. Soft tones noted. Systolic murmur present at the lower left sternal border. ABDOMEN: Soft, mildly obese. Normoactive bowel sounds. EXTREMITIES: 1 + ankle edema. DIAGNOSTIC DATA: Morning blood work is pending. IMPRESSION: 1. Decompensated congestive heart failure, acute on chronic, predominantly systolic. 2. Hypertension with suboptimal control. 3. History of diabetes. 4. Elevated transaminase and bilirubin. 5. Transient confusion, workup in progress. RECOMMENDATIONS: His current medications will continue for now. Hydralazine will be increased to 50 mg t.i.d. Followup blood work will be reviewed. Close monitor his renal function is necessary. Sodium and fluid restriction should continue. Further recommendations will be made based upon his clinical course. Everett De La Fuente MD
[2018-08-15] MEDS: Insulin Reg-MEDIUM-Coverage SC SCH ×4 (08:57→21:33)
--- NOTE | 2018-08-15 09:51 | CT ---
Date of service: 08/14/2018 PROCEDURE: CT HEAD WITHOUT CONTRAST. HISTORY: CHANGE IN MENTAL STATUS, HALLUCINATIONS COMPARISON: CT head dated 07/03/2014 TECHNIQUE: Axial computed tomography images were obtained through the head/brain without intravenous contrast. Radiation dose: Total exam DLP = 1056.51 mGy-cm. This CT exam was performed using one or more of the following dose reduction techniques: Automated exposure control, adjustment of the mA and/or kV according to patient size, and/or use of iterative reconstruction technique. FINDINGS: HEMORRHAGE: No intracranial hemorrhage. BRAIN: No mass effect or edema. Atrophy. Chronic microvascular ischemic changes. Left basal ganglia lacunar infarction. VENTRICLES: Unremarkable. No hydrocephalus. CALVARIUM: Unremarkable. PARANASAL SINUSES: Unremarkable as visualized. No significant inflammatory changes. MASTOID AIR CELLS: Unremarkable as visualized. No inflammatory changes. OTHER FINDINGS: None. IMPRESSION: No acute intracranial pathology. Age-related changes. No significant interval change.
[2018-08-15] MEDS ORDERED: Levalbuterol 1.25 MG/3 ML Inhal Soln UD IH PRN (10:00)
[2018-08-15] MEDS: Budesonide 0.5 mg/2 ml Inhal Susp UD IH SCH ×2 (11:11→19:43)
[2018-08-15 11:12] LABS: ARTERIAL BLOOD GAS HCO3 26.3 mmol/L (21-28); ARTERIAL BLOOD GAS HEMOGLOBIN 10.5 g/dL (11.7-17.4); ARTERIAL BLOOD GAS O2 CAPACITY 14.2 mL/dl (16-24); ARTERIAL BLOOD GAS O2 CONTENT 13.3 ML/dl (15-23); ARTERIAL BLOOD GAS O2 SAT 93.5 % (95-98); ARTERIAL BLOOD GAS PCO2 37 mm/Hg (35-45); ARTERIAL BLOOD GAS PH 7.46 (7.35-7.45); ARTERIAL BLOOD GAS TCO2 27.4 mmol.L (22-28)
[2018-08-15] MEDS: Levothyroxine 25 MCG TAB PO SCH (11:36)
[2018-08-15] MEDS: SACUBITRIL 49mg/VALSARTAN 51mg tab PO SCH (11:37)
--- NOTE | 2018-08-15 13:12 | CON ---
PULMONARY CONSULTATION DATE: 08/15/2018 HISTORY OF PRESENT ILLNESS: Mr. Hedrick was admitted to the hospital with shortness of breath. He has longstanding history of cardiomyopathy and congestive heart failure. He was admitted for further evaluation of his pulmonary vascular congestion, being given increased doses of IV diuretics. Cardiology is watching closely. Due to his shortness of breath, pulmonary evaluation was requested. When I saw the patient this morning, he was at the bedside with a 1:1 ob gyn physician assistant. He evidently had changes in mental status, which are currently being evaluated. The patient is basically obtunded this morning and is not able to answer any questions according to the "sitter." This is a major change since the patient's admission yesterday. PAST MEDICAL HISTORY: The patient has history of cardiomyopathy and congestive heart failure. He has had vigorous tertiary care treatment for his congestive heart failure. He continues to smoke cigarettes. He used to smoke 3 packs a day, but is now down to 1 pack a day. He has a past history of pneumonia. He has had diabetes mellitus and hypothyroidism for a long time. He was admitted to the hospital with progression of his pulmonary vascular congestion with bilateral edema. FAMILY HISTORY: Unknown. SOCIAL HISTORY: We know the patient is a smoker. Alcohol and drug use is not known. Travel history is unknown. ALLERGIES: EGGS. HOME MEDICATIONS; Gleaned from the chart. The patient is on Lopressor, Glucophage, Lipitor, Pepcid, Feosol, Lasix b.i.d., Advil, Levoxyl, and Entresto. I do not see any inhaled bronchodilators listed. REVIEW OF SYSTEMS: Cannot be obtained at this time, as the patient is obtunded. We will discuss with Dr. Nicole, his primary medical doctor who knows the patient well. PHYSICAL EXAMINATION: GENERAL: The patient is lying in bed, poorly responsive. VITAL SIGNS: He is afebrile 98.6, pulse is 90, respiratory rate 18, blood pressure 160/90, O2 saturation last 90% on room air, 96% on supplemental oxygen. HEENT: Normocephalic, atraumatic. EOMs cannot be evaluated. NECK: Supple. Positive jugular venous distention. No lymphadenopathy, no bruit auscultated. LUNGS: Global decrease in breath sounds, bilateral rales throughout, soft wheezes auscultated as well. ABDOMEN: Soft. Bowel sounds normoactive without mass, guarding, rebound, or organomegaly. EXTREMITIES: Pitting edema in both lower extremities. The patient has LILY stockings in place. NEUROLOGIC: Abnormal mental status. No focal findings noted. Skin: Warm and dry. Lymphadenopathy is not present on physical examination. LABORATORY DATA: Sodium 141, potassium 3.5, BUN 35, creatinine 1.9. Liver functions are elevated. No actual arterial blood gases are in the computer. White count 4000, hemoglobin 10.5, hematocrit 33. EKG, sinus tachycardia, nonspecific ST-T wave changes. Chest x-ray, pulmonary vascular congestion. CLINICAL IMPRESSION: The patient has new progressive mental status changes. This needs urgent followup, have discussed with the nurse. We will discuss with Dr. Nicole. The patient was slightly hyponatremic must rule out additional etiology. Arterial blood gas will be done to rule out hypercapnia and hypoxemia. Findings consistent with: 1. Mental obtundation. 2. Pulmonary vascular congestion/congestive heart failure. 3. Cardiomyopathy (end-stage). 4. Bronchospasm, rule out cardiac asthma. 5. Smoking history. 6. Probable chronic obstructive pulmonary disease from long smoking history, although the patient is in no way able to do any pulmonary function studies at this time. PLAN: 1. Stat arterial blood gas to rule out CO2 retention or hypoxemia. 2. Add inhaled bronchodilators and corticosteroids for bronchospasm, although this may be related to "cardiac asthma." Smoking history may be contributing to chronic obstructive pulmonary disease and treating this with Xopenex is considered safe at this time. Followup chest x-ray in the morning to make sure that there is improvement in pulmonary vascular congestion. We will defer further treatment of congestive heart failure and cardiomyopathy to primary medical doctor and cardiology Dr. De La Fuente. We will follow closely with you. The overall status is guarded at this time. We will discuss with Dr. Nicole. Endy Morse MD
--- NOTE | 2018-08-15 14:46 | PN ---
DATE: 08/15/2018 SUBJECTIVE: Yesterday, he had a very rough day. He was very much congested in CHF, little COPD, also he got very confused. He had to be on a one to one. He was acting out. I bumped up his Lasix to 60 twice a day and his Solu-Medrol to 40 every 8 hours, which I think made a big difference. This morning he is in bed. He is alert. He is talking better. He is less agitated, more alert and oriented and is not congested. Yesterday he was quite congested. His lungs are much better today. He has no edema in the legs. MEDICATIONS: He is on Apresoline; Ativan; Ecotrin; Entresto; Feosol; insulin; isosorbide; Lasix was 60 twice a day, I dropped it to 40 twice a day today; Lipitor; Lopressor; Norvasc; Pulmicort; Seroquel; Solu-Medrol, I dropped it to 40 every 12 hours today. Seems his lungs are very clear today. Yesterday that were congested. Synthroid and Xopenex. PHYSICAL EXAMINATION: VITAL SIGNS: He has a 97.4 temperature, 92 pulse, 162/93 blood pressure, we did increase his Apresoline the blood pressure down, 20 respiratory rate, 98% O2 sat on room air. GENERAL: He is more alert and oriented today. He opens his eyes and looked at me. HEART: Regular rate. LUNGS: Decreased breath sounds, but clear. No wheezes or rhonchi or rales. ABDOMEN: Soft. EXTREMITIES: No edema. Yesterday like +3, today's no edema. I guess the increase in Lasix might have been the difference. LABORATORY DATA: He has a white count of 4.5, hemoglobin 10.5, hematocrit 30.1, platelets of 280. Sodium 141, potassium 3.5 we will replace the potassium. BUN 35, creatinine 1.5 which is better than yesterday, 35 of GFR, 174 sugar, calcium 9.4, total bili is 2.3. AST is 89, ALT is 143, alk phos was 303, I did pneumonia level Liver enzymes are coming down, total protein 7.6. Urine for the most part was trace. He is being seen by Cardiology, I did a CAT scan of the head because of his acute confusion and that was fine. No bleeds or strokes found. Continue aggressive treatment and care for his CHF, COPD, change in mentation, and hypertension. Also there is a consult with psychiatry due to his change in mentation, agitation, and confusion. Hopefully, continue to improve. Jai Nicole DO MTDD
--- NOTE | 2018-08-15 19:16 | CON ---
DATE: 08/15/2018 HISTORY OF PRESENT ILLNESS: The patient is a 73-year-old male with multiple medical issues (please refer to medical note for a comprehensive list) with no formal psychiatric history who is admitted for worsening shortness of breath and apparently new onset of hallucinations. The psychiatrist was called due to the patient's hallucinations and agitation, confusion on the medical floor. I reviewed recent notes, which do not indicate that the patient has ever been psychiatrically admitted here or prior consultations by our service. Recent notes indicate that the patient has been agitated, confused and hallucinating and yelling and has been illogical and argumentative with staff members. The patient has been restless, making random and paranoid statements. He is clearly disoriented. I met with him at bedside this morning, he seems calmer. He notes that it is August and it is 2018 and he is in the hospital. He is adamant that he is not depressed or anxious. He denies having any suicidal thoughts. He does, however, endorse having hallucinations and reports that he has been having them for the last week; however, he is unable to fully elaborate. Focus varies and it is quite inconsistent. The patient appears fatigued and at times distracted and preoccupied. He does not appear overtly paranoid. He is not actively hallucinating during my interview with him. His insight and judgment are though notably impaired. As noted, the patient has no prior formal psychiatric history, though has been hallucinating for the past week. Denies any psychiatric medications, suicide attempts or psychiatric inpatient hospitalizations and a review of [facility] seems to confirm this as the patient has not had any psychiatric involvement on any of his medical hospitalizations. RELEVANT PSYCHIATRIC MEDICATIONS: Include only Ativan 0.5 mg IV every 6 hours p.r.n., which the patient received one dose late last night. IMPRESSION: The patient is clearly delirious due to waxing and waning symptoms. It is unlikely that the patient has new onset primary psychiatric disorder with psychosis. RECOMMENDATIONS: At the time, I will recommend Seroquel in the evening to help with sun downing, cannot rule out contribution of dementia. I mentioned that interventions with the patient and the patient is agreeable as the patient seems more lucid this morning than he was last night. At the time, we will continue to follow up. Next followup will be on 08/16/[address] Cope. Shannon Vazquez MD [facility] # [id number]
[2018-08-15] MEDS ORDERED: MethylPREDNISolone 40 mg Vial IVP SCH (22:00)
[2018-08-16 06:16] LABS: HEMOGLOBIN 10.3 g/dL (14.0-18.0); MEAN CELL VOLUME 78.3 fl (80.0-105.0); MEAN CORPUSCULAR HEMOGLOBIN 24.6 pg (25.0-35.0); MEAN CORPUSCULAR HGB CONC 31.4 g/dl (31.0-37.0); MEAN PLATELET VOLUME 10.2 fl (7.0-11.0); RBC 4.19 10^6/uL (3.5-6.1); RED CELL DISTRIBUTION WIDTH 17.6 % (11.5-14.5); WHITE BLOOD COUNT 12.8 10^3/uL (4.5-11.0)
[2018-08-16 07:03] LABS: ALB/GLOB RATIO 0.9 (1.1-1.8); ALBUMIN 3.6 g/dL (3.0-4.8); CALCIUM 9.1 mg/dL (8.4-10.5)
--- NOTE | 2018-08-16 07:04 | CON ---
DATE: 08/15/2018 CARRILLO VALERA Mayco Gaffney MD [facility] # [id number]
[2018-08-16] MEDS: Budesonide 0.5 mg/2 ml Inhal Susp UD IH SCH ×2 (07:53→19:30)
[2018-08-16] MEDS: Arformoterol 15 mcg/2 ml Inh Sol IH SCH ×2 (07:53→19:30)
--- NOTE | 2018-08-16 08:13 | PN ---
DATE: 08/16/2018 SUBJECTIVE: The patient appears comfortable this morning. He is not short of breath at rest. PHYSICAL EXAMINATION: VITAL SIGNS: Temperature is 97.3, pulse 84, respirations 18, blood pressure 116/78. Oxygen saturation on nasal cannula - 97%. HEENT: Normocephalic, atraumatic. No JVD. CARDIOVASCULAR: Systolic ejection murmur at the lower left sternal border. Positive S3 gallop. LUNGS: Crackles at the bases. Minimal bilateral rhonchi. No wheezing. EXTREMITIES: Mild edema, no cyanosis, no clubbing. Calves are nontender to palpation. GASTROINTESTINAL: Abdomen is soft, nontender, nondistended. Bowel sounds are positive. SKIN: No acute rash. NEUROLOGIC: Exam limited at the present time. IMPRESSION: 1. Acute congestive heart failure. 2. Acute bronchitis. 3. Chronic obstructive pulmonary disease. 4. Renal insufficiency. PLAN: The patient appears comfortable this morning. He is not short of breath at rest. On physical exam, there is no significant bronchospasm noted. In addition, the alveolar arterial gradient is also less. I will continue the current nebulizer treatments and decrease the intravenous steroids this morning. I would continue with the treatment for congestive heart failure as per Cardiology.. The patient remains on intravenous Lasix. Input by Dr. Gaffney is noted. Clinical status of the patient is certainly improved - compared to his initial presentation. However, given the above, the future status/prognosis for this patient does remain guarded. I will discuss the above with Dr. Nicole later this morning. Jesse Osorio MD MTDD
[2018-08-16] MEDS: SACUBITRIL 49mg/VALSARTAN 51mg tab PO SCH (09:54)
[2018-08-16] MEDS: Levothyroxine 25 MCG TAB PO SCH (09:54)
[2018-08-16] MEDS: MethylPREDNISolone 40 mg Vial IVP SCH ×2 (09:55→21:37)
[2018-08-16] MEDS: Insulin Reg-MEDIUM-Coverage SC SCH ×4 (09:59→21:34)
--- NOTE | 2018-08-16 10:46 | CP.PCM.PCO ---
Addendum Addendum: 08/16/18 10:45 pt appeared to be restless earlier, needed to be medicated with Ativan IVP at the time of this residential mortgage underwriter round, pt presented to be sedated, seeping, snoring, no signs of discomfort. will f/u tomorrow am.
--- NOTE | 2018-08-16 11:37 | RAD ---
Date of service: 08/16/2018 HISTORY: r/o CHF progression COMPARISON: 08/13/2018. FINDINGS: Right-sided central venous catheter terminates in the SVC LUNGS: The lungs are well inflated. There is moderate pulmonary venous congestion since the prior examination. There is also mild interstitial pulmonary edema PLEURA: No pleural effusions or pneumothorax. CARDIOVASCULAR: Persistent moderate cardiomegaly. No aortic atherosclerotic calcifications present. OSSEOUS STRUCTURES: Within normal limits for the patient's age. VISUALIZED UPPER ABDOMEN: Normal. OTHER FINDINGS: None. IMPRESSION: Worsening moderate pulmonary venous congestion.
--- NOTE | 2018-08-16 13:28 | PN ---
DATE: 08/16/2018 SUBJECTIVE: The patient is seen lying in bed on remote telemetry. He is somnolent but arousable. He appears mildly confused. He reportedly was agitated last evening and received Ativan and Seroquel. He knows who he is, but he is unaware he is in the hospital at the present time. His dyspnea appears improved and his edema is improved as well. His current medications include hydralazine 50 mg t.i.d., Ativan p.r.n., Brovana, Ecotrin, Entresto 49/51 mg daily, iron supplement, insulin coverage, Isordil 20 mg b.i.d., Lasix 40 mg IV b.i.d., Lipitor 10 mg daily, metoprolol 50 mg b.i.d., Norvasc 5 mg daily, Pepcid 20 mg daily, Seroquel, Solu-Medrol, Synthroid, and Xopenex. OBJECTIVE GENERAL: He is an elderly man who appears comfortable at rest. VITAL SIGNS: His blood pressure is 142/80 with pulse of 76 in sinus, respirations are 16, he is afebrile. HEENT: JVD noted at 30 degrees. CHEST: Bilateral scattered rhonchi with diminished breath sounds at the bases. HEART: PMI displaced laterally with soft tones noted. Systolic murmur is present at the left sternal border. ABDOMEN: Soft and nontender with normoactive bowel sounds. EXTREMITIES: Trace ankle edema. DIAGNOSTIC DATA: Potassium 3.8, BUN and creatinine are 41 and 1.8. White count 12.8, hemoglobin and hematocrit are 10.3 and 32.8 with a platelet count of 278,000. AST and ALT are 74 and 119 with alkaline phosphatase 269, bilirubin 1.7. Repeat chest x-ray pending. IMPRESSION: 1. Decompensated congestive heart failure, systolic, [id number], clinically improved. 2. Altered mental status appears secondary to sedation. 3. History of hypertension with improved control. 4. History of diabetes. 5. Elevated transaminases and bilirubin, slowly improving. RECOMMENDATIONS: His current medications can continue for now. If cost factor is not excessive eventually switching from hydralazine and Isordil to a Bidil combination medication would be reasonable. Entresto use can continue given the stabilization of his renal function. IV Lasix can be switched to oral administration soon. The need for sodium and fluid restriction will need to be emphasized to him as well as the need for medical compliance. The physical therapy evaluation is pending to determine his functional status at present. I will continue to follow any further issues as appropriate. Everett De La Fuente MD
--- NOTE | 2018-08-16 14:05 | PN ---
DATE: 08/16/2018 SUBJECTIVE: I saw him in his room. He is kind of out of it. He had a very rough night. He is on the was one-to-one. He has been out of it mentally for a little bit now. He is currently on Apresoline, Ativan, Brovana, Ecotrin, Entresto, Feosol, insulin, isosorbide, Lasix, Lipitor, Lopressor, Norvasc, Pepcid, potassium replacement, Pulmicort, Seroquel, Solu-Medrol, Synthroid, and Xopenex. He is being seen by Pulmonary, Psychiatry and Cardiology. PHYSICAL EXAMINATION: VITAL SIGNS: He has a 97.5 temperature, 76 pulse, 143/80 blood pressure, 20 respiratory rate, 90% O2 sat on room air. HEENT: Head is atraumatic, normocephalic. HEART: Regular rate. LUNGS: Decreased breath sounds, but clear. ABDOMEN: Soft. EXTREMITIES: No edema. LABORATORY DATA: He has a 12.8 white count from the steroids, 10.3 hemoglobin, 32.8 hematocrit, and 278 platelets. Sodium 140, potassium 3.8, BUN 41, creatinine 1.8, GFR is 37, sugar is 202, calcium is 9.1, total bili is 1.7, AST is 74, ALT is 119, alk phos is 269, and total protein 7.5. Liver enzymes are coming down a little bit better. ASSESSMENT AND PLAN: He is being seen by Pulmonary, Cardiology and Psychiatry. He is having some issues. He has acute congestive heart failure, acute bronchitis, chronic obstructive pulmonary disease, and renal insufficiency with elevated liver enzymes. We will continue to watch him closely, psychiatric care, order physical therapy for their recommendations. He did have a CAT scan of his head and that was okay. He did have an ammonia level for the acute confusion and that was okay. Continue with aggressive treatment and care chronic obstructive pulmonary disease and congestive heart failure, hypertension, and change in mentation. Jai Nicole DO [facility]
--- NOTE | 2018-08-16 15:52 | CP.PCM.PCO ---
Additional Comments - Additional Comments Additional Comments: Pt. seen , resting in bed, no distress, denied shortness of breath, states breathing is better, walked w.therapist, no dyspnea noted, oxygen saturation remained normal, denied dizziness. Per. Dr. De La Fuente, change IV Lasix to PO Lasix, result of repeat cxr pending. awaiting any further recs from psyche needed, suggested delirium r/t ing, ordered Seroquel. As discussed with PMD, Anticipate DC home tommorow pending psyche recs.
[2018-08-16 16:29] VITALS: O2SAT 100
[2018-08-17 07:19] LABS: HEMOGLOBIN 11.3 g/dL (14.0-18.0); MEAN CELL VOLUME 78.4 fl (80.0-105.0); MEAN CORPUSCULAR HEMOGLOBIN 24.6 pg (25.0-35.0); MEAN CORPUSCULAR HGB CONC 31.4 g/dl (31.0-37.0); MEAN PLATELET VOLUME 10.7 fl (7.0-11.0); RBC 4.59 10^6/uL (3.5-6.1); RED CELL DISTRIBUTION WIDTH 17.3 % (11.5-14.5); WHITE BLOOD COUNT 13.4 10^3/uL (4.5-11.0)
[2018-08-17 07:44] LABS: ALBUMIN 3.7 g/dL (3.0-4.8); CALCIUM 8.9 mg/dL (8.4-10.5)
--- NOTE | 2018-08-17 07:46 | PN ---
DATE: 08/17/2018 SUBJECTIVE: The patient appears comfortable this morning. He is not short of breath at rest. PHYSICAL EXAMINATION: VITAL SIGNS: (Last noted in the computer): Temperature is 98.3, pulse 69, respirations 18, blood pressure 116/73. Oxygen saturation on nasal cannula - 100%. HEENT: Normocephalic, atraumatic. No JVD. CARDIOVASCULAR: Systolic ejection murmur at the lower left sternal border. Positive S3 gallop. LUNGS: Crackles at both bases. Much less/very minimal rhonchi. No wheezing. EXTREMITIES: Less edema, no cyanosis, no clubbing. Calves are nontender to palpation. GASTROINTESTINAL: Abdomen is soft, nontender, nondistended. Bowel sounds are positive. SKIN: No acute rash. NEUROLOGIC: Exam limited at the present time. PERTINENT LABORATORY DATA: Chest x-ray was done yesterday and reviewed. There remains mild pulmonary vascular congestion - possibly slightly worsened from the previous film. IMPRESSION: 1. Acute congestive heart failure. 2. Acute bronchitis. 3. Chronic obstructive pulmonary disease. 4. Renal insufficiency. PLAN: The patient appears very comfortable this morning. He is not short of breath at rest. He does state to feeling much better overall. I did discuss the case with the night nurse at length. The night nurse stated the patient had an uneventful night. On physical exam, there is certainly less bronchospasm noted. In addition, the oxygen saturation on nasal cannula is now 100%. I will continue the current nebulizer treatments and change to oral steroids this morning. I would continue with the treatment for congestive heart failure as per Cardiology. Input by Dr. Hays is noted. Clinical status of the patient is definitely improved - compared to the initial presentation. However, given the above, the future status/prognosis for this patient does remain guarded. I will discuss the above with Dr. Nicole. Jesse Osorio MD [facility]
[2018-08-17] MEDS: Budesonide 0.5 mg/2 ml Inhal Susp UD IH SCH (07:49)
[2018-08-17] MEDS: Arformoterol 15 mcg/2 ml Inh Sol IH SCH (07:49)
[2018-08-17 07:55] VITALS: BP 142/86; RESP 20; TEMP 97
[2018-08-17] MEDS: Levothyroxine 25 MCG TAB PO SCH (09:41)
[2018-08-17] MEDS: Insulin Reg-MEDIUM-Coverage SC SCH (09:42)
[2018-08-17 12:02] VITALS: PULSE 64
--- NOTE | 2018-08-17 16:27 | CP.PCM.PCO ---
Physician Communication Note - Physician Communication Note Physician Communication Note: pt was d/c
--- NOTE | 2018-08-18 02:09 | DS ---
HISTORY OF PRESENT ILLNESS: He is doing better now. He is with ease. He is breathing better, walking better, talking better, eating better, mentally he is also better. He is going to get Januvia 50 mg added due to elevated blood sugars, probably from the steroids, we will keep an eye on that in the outpatient. He is going to go home today. He had CHF, COPD, hypertension, change in mental status, had LFTs and high blood sugars. PHYSICAL EXAMINATION: VITAL SIGNS: Temperature 98.3, 69 pulse, 116/70 blood pressure, 18 respiratory rate, 100% O2 saturation. HEENT: Head is atraumatic and normocephalic. HEART: Regular rate. LUNGS: Decreased breath sounds. ABDOMEN: Soft. EXTREMITIES: No edema. LABORATORY DATA: He has a 140 sodium, potassium 3.8, BUN is 41, creatinine 1.8 a little high, he is off the IV Lasix. His last blood sugar was 127. He has a 9.1 calcium, 1.7 total bili, AST is 74, ALT is 119, alkaline phosphatase 269. White count 13.4 on steroids, hemoglobin is 11.3, hematocrit 36, platelets 268. His chest x-ray yesterday was worsening moderate pulmonary venous congestion. ASSESSMENT AND PLAN: A note from the scallop binder said he changed his medications to p.o. He has been on sodium and fluid restriction. We will follow him very closely on the outpatient. I will see him on hopefully Thursday before the weekend. I will call his mediations into the pharmacy. He will be on prednisone 40 mg for 3 days, 30 mg for 3 days, 20 mg for 3 days and 10 mg for 3 days and then stop. He might have to increase his Lasix p.o. if he does not continue to stay stable. Jai Nicole DO [facility]
== END 2018-08-17 12:06 | disposition home or self-care (01) | DRG 292 ==
LOC: ED 11:30 → ERH 13:33 → 3RSO 16:46 → 3RNO 08-15 23:28
PROVIDERS: ADMIT Family Medicine; ATTEND Family Medicine
DX: I11.0 Hypertensive heart disease with heart failure (principal); R44.3 Hallucinations, unspecified; E87.1 Hypo-osmolality and hyponatremia; J44.0 Chronic obstructive pulmonary disease with (acute) lower respiratory infection; I50.23 Acute on chronic systolic (congestive) heart failure; I42.0 Dilated cardiomyopathy; I25.10 Atherosclerotic heart disease of native coronary artery without angina pectoris; E03.9 Hypothyroidism, unspecified; F41.9 Anxiety disorder, unspecified; M51.9 Unspecified thoracic, thoracolumbar and lumbosacral intervertebral disc disorder; R74.0 Nonspecific elevation of levels of transaminase and lactic acid dehydrogenase [LDH]; F17.210 Nicotine dependence, cigarettes, uncomplicated; J44.9 Chronic obstructive pulmonary disease, unspecified; J20.9 Acute bronchitis, unspecified; E11.65 Type 2 diabetes mellitus with hyperglycemia; T38.0X5A Adverse effect of glucocorticoids and synthetic analogues, initial encounter; N28.9 Disorder of kidney and ureter, unspecified; Z79.84 Long term (current) use of oral hypoglycemic drugs; Z79.890 Hormone replacement therapy; Z79.899 Other long term (current) drug therapy; Z87.01 Personal history of pneumonia (recurrent); Z90.49 Acquired absence of other specified parts of digestive tract; F32.89 Other specified depressive episodes